=== PATIENT | male | born 1990 | race Caucasian/White ===

== ENCOUNTER 2025-07-30 15:38 | Observation (INO) ==
--- NOTE | 2025-07-30 16:32 | Emergency Department Note ---
Impression & Plan Discoloration of skin of finger, Infected finger ED Provider Note NAME: OSCAR ELIZONDO AGE: 35 SEX: M : 1990 ARRIVES VIA: Walk-In INFORMANT: Patient, ED PROVIDER(S): Chayito Marsh MD CHIEF COMPLAINT: Hand pain HPI: This is a 35-year-old male presenting for hand pain. Patient states he had fallen about 1 week ago. He notes he was seen here with negative x-rays. He states that the pain is getting worse specifically in the hands. His fingertips are becoming discolored and cold. He is worried about the symptoms. He notes he is excruciating pain from this. He tells me today that he did inject Adderall as a relapse prior to the bruising to his arm and being seen last time. He did not tell the previous provider of this. ROS: See above HPI for pertinent positives & negatives. A total of 10 systems reviewed and were otherwise negative. PAST MEDICAL HISTORY: See Below PAST SURGICAL HISTORY: See Below FAMILY HISTORY: See Below SOCIAL HISTORY: See Below HOME MEDICATIONS: See Below ALLERGIES: See Below VITALS: See Below PHYSICAL EXAMINATION: General: resting comfortably in no acute distress Head: Normocephalic and atraumatic Eyes: Normal inspection, extraocular muscles intact Ear, nose, throat: Normal external exam Neck: Normal range of motion Respiratory: lungs clear to auscultation bilaterally Cardiovascular: Regular rate/rhythm, no murmur GI: soft, nontender, no guarding or rebound Extremities: Full range motion of the shoulder, elbow and wrist, significant mottling ecchymosis of the right arm from elbow to fingertips, intact pulses radially and ulnar, cold palmar aspect of the hand and fingertips, dusky appearance of 1st, 2nd and 3rd fingers with excruciating pain Neuro: The patient awake and alert, appropriately conversive, no focal deficits, symmetric faces MEDICAL DECISION MAKING: This is a 35-year-old male presenting for hand pain. Patient has a fairly concerning physical exam. He initially did not mention the IV Adderall injection into the arm as a relapse or he been sober prior to this. His hand is fairly dusky, cold, concerning for arterial occlusion. Consider necrotizing infection, severe bruising, arterial occlusion, septic emboli - Blood work reveals WBC count 13.62. Otherwise lactic acid initially 2.3, down to 1.4. - Venous and arterial ultrasounds did not reveal thrombosis or arterial occlusion. There are 2 subcutaneous complex fluid collections, on exam I did not see clear signs of abscess. - As patient has dusky fingers, concern for distal disease, will admit to the hospital service. Patient given vancomycin and Zosyn for broad-spectrum coverage. - Care discussed with Dr. Lowe for admission Differential diagnosis: Necrotizing infection, bruising, arterial occlusion, septic emboli, venous occlusion Diagnostics interpreted by me: ECG: None Cardiac Monitoring: An order was placed for continuous cardiac monitoring. The monitor shows a rate of 67 with sinus rhythm. Past Med/Surg History Problem List (Updated 07/31/25 @ 00:11 by Chayito Marsh MD) Infected finger (Acute) Discoloration of skin of finger (Acute) Injury of right upper extremity (Acute) Medical History Opioid dependence on agonist therapy Surgical History History of orthopedic surgery Social History Smoking Status: Current every day smoker Tobacco Type: E-cigarettes / Vaping Second Hand Exposure: No; Do You Dip or Chew Tobacco: No; Tobacco Cessation Education Requested by Patient: No Hx Alcohol Use: No Hx Substance Use: Yes Last Used Substance Other:: On suboxone program. Substance Use Type Other:: Medical marijuana. 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6 C Temperature Source Temporal Artery Scan Pulse Rate 91 H Pulse Rate [Apical] 61 Respiratory Rate 16 20 Respiratory Effort / Characteristics Non-Labored Spontaneous Respiratory Depth Normal Respiratory Pattern Regular Blood Pressure 149/88 H Blood Pressure [Right Arm] 133/88 Blood Pressure Mean 108 Blood Pressure Mean [Right Arm] 103 Pulse Oximetry 96 97 Oxygen Delivery Method Room Air Room Air Sepsis Recent Fever Within 48 Hours No Sepsis New/Unexplained Change in Mental Status N/A Sepsis Action Taken by Nursing No Action Required Laboratory Data 07/30/25 16:54 07/30/25 16:54 Lab Results 07/30/25 07/30/25 Range/Units 16:54 19:11 WBC 13.62 H (4.8-10.8) K/ul RBC 4.20 L (4.70-6.10) M/uL Hgb 11.7 L (14.0-18.0) g/dl Hct 35.1 L (42.0-52.0) % MCV 83.6 (80.0-100.0) fL MCH 27.9 (25.0-34.0) pg MCHC 33.3 (32.0-36.0) g/dL RDW Std Deviation 40.4 (36.4-46.3) fL RDW Coeff of Charity 13.2 (11.5-14.5) % Plt Count 263 (130-400) K/uL MPV 8.4 L (9.4-12.4) fL Immature Gran % (Auto) 0.4 % Neut % (Auto) 91.6 % Lymph % (Auto) 6.5 % [place] % (Auto) 1.4 % Eos % (Auto) 0.0 % Baso % (Auto) 0.1 % Neut # (Auto) 12.46 H (1.40-6.50) K/uL Lymph # (Auto) 0.89 L (1.20-3.40) K/uL [place] # (Auto) 0.19 (0.11-0.59) K/uL Eos # (Auto) 0.00 (0.00-0.50) K/uL Baso # (Auto) 0.02 (0.00-0.20) K/uL Immature Gran # (Auto) 0.06 (0.01-0.20) K/uL Sodium 136 (136-145) mmol/L Potassium 4.3 (3.5-5.1) mmol/L Chloride 98 (98-107) mmol/L Carbon Dioxide 30 (21-32) mmol/L Anion Gap 8 (3-11) BUN 17 (6-23) mg/dl Creatinine 0.64 (0.6-1.4) mg/dl Est Cr Clr Drug Dosing 125.5 ml/min eGFR 125.83 BUN/Creatinine Ratio 26.6 H (10-20) Glucose 194 H (70-99(Fasting)) mg/dl Lactate 2.3 H* 1.4 (0.4-2.0) mmol/L Calcium 9.7 (8.6-10.3) mg/dl Total Bilirubin 0.5 (0.2-1.0) mg/dl AST 24 (13-39) U/L ALT 34 (7-52) U/L Alkaline Phosphatase 109 H (34-104) U/L Total Creatine Kinase 61 (30-223) U/L Total Protein 7.8 (6.0-8.3) gm/dl Albumin 4.2 (3.4-5.0) gm/dl Globulin 3.6 (2.5-4.0) gm/dl Albumin/Globulin Ratio 1.2 (0.9-2) Administered Medications Acetaminophen (Acetaminophen 325 Mg Tab) 650 mg PO QID PRN PRN Reason: pain/fever Stop: 08/29/25 19:36 Last Admin: 07/30/25 19:59 Dose: 650 mg Documented By: KATHERINE Buprenorphine/Naloxone (Buprenorphine/Naloxone 8/2 Mg Tab) 1 tab SL BID [facility] Stop: 08/29/25 20:59 Last Admin: 07/30/25 21:43 Dose: 1 tab Documented By: TEE Calcium Carbonate (Calcium Carbonate 500 Mg Chewable Tab) 500 mg PO QID PRN PRN Reason: heartburn Stop: 08/29/25 22:09 Last Admin: 07/30/25 22:15 Dose: 500 mg Documented By: TEE Doxycycline Hyclate (Doxycycline Hyclate 100 Mg Cap) 100 mg PO BID [facility] Stop: 08/06/25 20:59 Last Admin: 07/30/25 22:15 Dose: 100 mg Documented By: TEE Hydroxyzine HCl (Hydroxyzine Hcl 10 Mg Tab) 10 mg PO QID PRN PRN Reason: Anxiety Stop: 08/29/25 20:29 Last Admin: 07/30/25 23:16 Dose: 10 mg Documented By: TEE Piperacillin Sod/Tazobactam Sod (Zosyn) 4.5 gm in 100 mls @ 25 mls/hr IV Q8H PEBBLES; Protocol Stop: 08/01/25 17:14 Last Infusion: 07/30/25 22:36 Dose: Infused Documented By: Admin: 07/30/25 18:36 Dose: 25 mls/hr Documented By: KATHERINE Sodium Chloride (Nss) 1,000 mls @ 60 mls/hr IV .[id number] ONE Stop: 07/31/25 12:24 Last Admin: 07/30/25 21:15 Dose: 60 mls/hr Documented By: TEE Ketorolac Tromethamine (Ketorolac Tromethamine 15 Mg/Ml Vial) 15 mg IV Q6H PRN PRN Reason: Pain Stop: 08/04/25 19:36 Last Admin: 07/30/25 22:15 Dose: 15 mg Documented By: TEE Discontinued Medications Vancomycin HCl 1,500 mg/ (Sodium Chloride) 530 mls @ 200 mls/hr IV NOW ONE Stop: 07/30/25 19:52 Last Admin: 07/30/25 20:13 Dose: 200 mls/hr Documented By: KATHERINE Sodium Chloride (Nss) 500 mls @ 999 mls/hr IV .Q31M ONE Stop: 07/30/25 17:49 Last Infusion: 07/30/25 19:22 Dose: Infused Documented By: Admin: 07/30/25 18:22 Dose: 999 mls/hr Documented By: KATHERINE Acetaminophen (Ofirmev) 1,000 mg in 100 mls @ 400 mls/hr IV NOW STA Stop: 07/30/25 17:33 Last Infusion: 07/30/25 18:36 Dose: Infused Documented By: Admin: 07/30/25 18:21 Dose: 400 mls/hr Documented By: KATHERINE Ioversol (Optiray 320 100ml) 93 ml IV ONCE ONE Stop: 07/30/25 21:08 Last Admin: 07/30/25 21:07 Dose: 93 ml Documented By: FUNMI Ketorolac Tromethamine (Ketorolac Tromethamine 15 Mg/Ml Vial) 15 mg IV NOW ONE Stop: 07/30/25 17:20 Last Admin: 07/30/25 18:21 Dose: 15 mg Documented By: [facility] Imaging Data Radiologist's Impression: Hand X-Ray 07/30/25 16:11 INDICATION: Pain TECHNIQUE: 3 views of the right hand were obtained. COMPARISON: None FINDINGS: No displaced acute osseous process is identified. There is generalized soft tissue swelling. No soft tissue gas is detected IMPRESSION: No displaced acute osseous process is identified. Generalized soft tissue swelling without radiographically evidence soft tissue gas Electronically signed by Adam Grijalva 07-30-2025 6:30 PM Duplex Scan Upper Extremity Artery 07/30/25 16:19 EXAM: US Duplex Right Upper Extremity Arteries INDICATION: Recent fall. Dusky fingers. TECHNIQUE: Real-time duplex ultrasound scan of the right upper extremity arteries integrating B-mode two-dimensional vascular structure, Doppler spectral analysis and color flow Doppler imaging. COMPARISON: No relevant prior studies available. FINDINGS: Right common carotid artery: No acute change noted. No occlusion or significant stenosis on color flow and spectral Doppler imaging. Normal waveform. Right subclavian artery: No acute change noted. No occlusion or significant stenosis on color flow and spectral Doppler imaging. Normal waveform. Right axillary artery: No acute change noted. No occlusion or significant stenosis on color flow and spectral Doppler imaging. Normal waveform. Right brachial artery: No acute change noted. No occlusion or significant stenosis on color flow and spectral Doppler imaging. Normal waveform. Right radial artery: No acute change noted. No occlusion or significant stenosis on color flow and spectral Doppler imaging. Normal waveform. Right ulnar artery: No acute change noted. No occlusion or significant stenosis on color flow and spectral Doppler imaging. Normal waveform. Soft tissues: No abnormality noted. IMPRESSION: Normal right upper extremity duplex arterial ultrasound. ACT 112: N/A Electronically signed by Bushra Sánchez 07-30-2025 6:33 PM Venous Doppler Study 07/30/25 16:19 EXAM: US Duplex Right Upper Extremity Veins INDICATION: Recent elbow injury. Intravenous drug use. TECHNIQUE: Real-time duplex ultrasound scan of the right upper extremity veins integrating B-mode two-dimensional vascular structure, Doppler spectral analysis, color flow Doppler imaging and compression. COMPARISON: No relevant prior studies available. FINDINGS: Deep veins: No abnormality noted. No DVT in the internal jugular, subclavian, axillary, or brachial veins. The veins demonstrate normal color flow, are normally compressible, with normal phasic flow and/or augmentation response. Superficial veins: Small and suboptimally assessed. No thrombus in the visualized basilic and cephalic veins. Soft tissues: In the upper arm is a subcutaneous fluid collection measuring 1.6 cm long by 0.3 cm AP by 0.7 cm transverse. Second similar collection in the region measures 1.0 x 0.2 x 0.4 cm. IMPRESSION: 1. No deep venous thrombosis of the right upper extremity. 2. There are 2 subcutaneous complex fluid collections which could reflect hematomas. If there are infectious symptoms, small abscess is not excluded. ACT 112: N/A Electronically signed by Bushra Sánchez 07-30-2025 6:32 PM Discharge Plan Visit Data Chief Complaint: Arm Pain Stated Complaint: R ARM PAIN, BLACK FINGERS, NOT RESOLVING ED Provider: Chayito Marsh Discharge Problem: Discoloration of skin of finger, Infected finger Patient Disposition: Admitted As Inpatient Condition: Fair Discharge Instructions Interventions: ED Discharge Assessment Last Done: 07/30/25 21:04
[2025-07-30 17:10] LABS: Hematocrit (blood only) 35.1 % (42.0-52.0); Hemoglobin 11.7 g/dl (14.0-18.0); Mean Corpuscular Hemoglobin 27.9 pg (25.0-34.0); Mean Corpuscular Volume 83.6 fL (80.0-100.0); Platelet Count 263 K/uL (130-400); RDW Standard Deviation 40.4 fL (36.4-46.3); Red Blood Count 4.20 M/uL (4.70-6.10); White Blood Count 13.62 K/ul (4.8-10.8)
[2025-07-30] MEDS ORDERED: VANCOMYCIN CONSULT ACTIVE PRN (17:14)
[2025-07-30 17:27] LABS: Alanine Aminotransferase 34 U/L (7-52); Albumin Globulin Ratio 1.2 (0.9-2); Albumin Level 4.2 gm/dl (3.4-5.0); Alkaline Phosphatase 109 U/L (34-104); Anion Gap 8 (3-11); Bilirubin,Total 0.5 mg/dl (0.2-1.0); Blood Urea Nitrogen 17 mg/dl (6-23); Calcium 9.7 mg/dl (8.6-10.3); Carbon Dioxide 30 mmol/L (21-32); Chloride 98 mmol/L (98-107); Creatine Kinase 61 U/L (30-223); Creatinine Clr Calc Pharmacy 125.5 ml/min; Globulin 3.6 gm/dl (2.5-4.0); Glucose 194 mg/dl (70-99(Fasting)); Potassium 4.3 mmol/L (3.5-5.1); Sodium 136 mmol/L (136-145); Total Protein 7.8 gm/dl (6.0-8.3)
[2025-07-30 17:40] LABS: Immature Granulocytes # (auto) 0.06 K/uL (0.01-0.20); Immature Granulocytes % (auto) 0.4 %
[2025-07-30] MEDS: KETOROLAC TROMETHAMINE 15 MG/ML VIAL IV ONE (18:21)
[2025-07-30] MEDS: ACETAMINOPHEN 1,000 MG/100 ML VIAL IV STA (18:21)
[2025-07-30] MEDS: SODIUM CHLORIDE 0.9% 500 ML IV ONE (18:22)
--- NOTE | 2025-07-30 18:30 | XRay Report ---
INDICATION: Pain TECHNIQUE: 3 views of the right hand were obtained. COMPARISON: None FINDINGS: No displaced acute osseous process is identified. There is generalized soft tissue swelling. No soft tissue gas is detected IMPRESSION: No displaced acute osseous process is identified. Generalized soft tissue swelling without radiographically evidence soft tissue gas Electronically signed by Adam Grijalva 07-30-2025 6:30 PM
--- NOTE | 2025-07-30 18:32 | Ultrasound Report ---
EXAM: US Duplex Right Upper Extremity Veins INDICATION: Recent elbow injury. Intravenous drug use. TECHNIQUE: Real-time duplex ultrasound scan of the right upper extremity veins integrating B-mode two-dimensional vascular structure, Doppler spectral analysis, color flow Doppler imaging and compression. COMPARISON: No relevant prior studies available. FINDINGS: Deep veins: No abnormality noted. No DVT in the internal jugular, subclavian, axillary, or brachial veins. The veins demonstrate normal color flow, are normally compressible, with normal phasic flow and/or augmentation response. Superficial veins: Small and suboptimally assessed. No thrombus in the visualized basilic and cephalic veins. Soft tissues: In the upper arm is a subcutaneous fluid collection measuring 1.6 cm long by 0.3 cm AP by 0.7 cm transverse. Second similar collection in the region measures 1.0 x 0.2 x 0.4 cm. IMPRESSION: 1. No deep venous thrombosis of the right upper extremity. 2. There are 2 subcutaneous complex fluid collections which could reflect hematomas. If there are infectious symptoms, small abscess is not excluded. ACT 112: N/A Electronically signed by Bushra Sánchez 07-30-2025 6:32 PM
--- NOTE | 2025-07-30 18:34 | Ultrasound Report ---
EXAM: US Duplex Right Upper Extremity Arteries INDICATION: Recent fall. Dusky fingers. TECHNIQUE: Real-time duplex ultrasound scan of the right upper extremity arteries integrating B-mode two-dimensional vascular structure, Doppler spectral analysis and color flow Doppler imaging. COMPARISON: No relevant prior studies available. FINDINGS: Right common carotid artery: No acute change noted. No occlusion or significant stenosis on color flow and spectral Doppler imaging. Normal waveform. Right subclavian artery: No acute change noted. No occlusion or significant stenosis on color flow and spectral Doppler imaging. Normal waveform. Right axillary artery: No acute change noted. No occlusion or significant stenosis on color flow and spectral Doppler imaging. Normal waveform. Right brachial artery: No acute change noted. No occlusion or significant stenosis on color flow and spectral Doppler imaging. Normal waveform. Right radial artery: No acute change noted. No occlusion or significant stenosis on color flow and spectral Doppler imaging. Normal waveform. Right ulnar artery: No acute change noted. No occlusion or significant stenosis on color flow and spectral Doppler imaging. Normal waveform. Soft tissues: No abnormality noted. IMPRESSION: Normal right upper extremity duplex arterial ultrasound. ACT 112: N/A Electronically signed by Bushra Sánchez 07-30-2025 6:33 PM
[2025-07-30] MEDS: PIPERACILLIN/TAZOBACTAM 4.5 GM/100 ML BAG IV SCH (18:36)
[2025-07-30] MEDS: ACETAMINOPHEN 325 MG TAB PO PRN (19:59)
[2025-07-30] MEDS: VANCOMYCIN HCL 1,500 MG in SODIUM CHLORIDE 0.9% 500 ML IV ONE (20:13)
[2025-07-30] MEDS ORDERED: PROMETHAZINE 6.25 MG/50.25 ML BAG IV PRN (20:30)
--- NOTE | 2025-07-30 20:32 | History & Physical Report ---
Date of Service July 30, 2025 Assessment & Plan (1) Cellulitis of right upper extremity: Plan: Assessment and plan below following discussion of case with ED provider and reviewing patient history/pertinent normal/abnormal diagnostic test results. Traumatic RUE cellulitis/hematoma rule out abscess No sepsis for now Anemia secondary to injury Hyperglycemia rule out DM anxiety/mood disorder, stable off medications chronic pain on Suboxone history of substance abuse ongoing vape use Admit to MedSurg Doxycycline and Zosyn CT right hand and right forearm Orthopedics consult contingent on CT results Check hemoglobin A1c Nicotine patch. DVT prophylaxis. SCDs Re: Traumatic extremity bleed Full code Text document was generated using [employer] voice recognition software. It may contain grammatical or spelling errors. Kindly contact undersigned for clarification of any documentation item in question. History of Present Illness Chief Complaint: Worsening RUE swelling Primary Care Provider: NO PCP History obtained from patient and records. Medical history significant for anxiety/mood disorder, chronic pain on Suboxone, history of substance abuse, ongoing vape use. Patient fell on his porch last week resulting in right hand/forearm trauma. Progressive swelling noted. Patient consulted [facility] ER 5 days ago. Soft tissue swelling noted on exam. No fractures on imaging. Patient discharged home and told to follow-up with export specialist. Worsening RUE swelling/bruising over the last few days. No fever, no chills. No chest pain, no SOB. Patient return to ER for worsening symptoms. IV vancomycin and Zosyn administered at the ER. Medical History as above Surgical History : Left hand trauma surgery Family History : No DM, no heart disease, no stroke, no blood clots Personal/Social history : Ongoing vape use, no EtOH intake, [employer] employee Allergies Allergy/AdvReac Type Severity Reaction Status Date / Time No Known Allergies Allergy Verified 07/25/25 16:20 Home Medications Medication Instructions Recorded Confirmed Type buprenorphine 8 mg-naloxone 2 mg 1 film sublingual BID 07/30/25 07/30/25 History sublingual film Past Med/Surg History Problem List (Updated 07/31/25 @ 00:17 by Pino Blanca MD) Cellulitis of right upper extremity Infected finger (Acute) Discoloration of skin of finger (Acute) Injury of right upper extremity (Acute) Medical History Opioid dependence on agonist therapy Surgical History History of orthopedic surgery Social History Smoking Status: Current every day smoker Tobacco Type: E-cigarettes / Vaping Second Hand Exposure: No; Do You Dip or Chew Tobacco: No; Tobacco Cessation Education Requested by Patient: No Hx Alcohol Use: No Hx Substance Use: Yes Last Used Substance Other:: On suboxone program. Substance Use Type Other:: Medical marijuana. Preferred Language: Malay Communication Ability: Effective Protective Services Officer Required: No Beliefs That Will Affect Care: None Current Living Situation: Alone Other Information That Helps Us Care for You: No Feels Safe at Home: Yes Safety Concerns: Feels Safe At This Time Assistive Devices: Hospital Bed Review of Systems Review of Systems: As per HPI, all other systems reviewed and negative Physical Exam Physical Exam: GENERAL: Comfortable, pleasant, underweight, no respiratory distress SKIN: Pallor, warm HEENT: Pale palpebral conjunctivae, no ptosis, dry buccal mucosa NECK : Supple, no tenderness CHEST : CTA, no tenderness HEART : RRR, no obvious murmurs ABDOMEN: no distention, nontender EXTREMITIES : Tender right hand/right forearm swelling with violaceous discoloration, palpable pulses, no other conspicuous deformities noted NEUROLOGIC : Coherent, no facial asymmetry, no other gross focality Results & Data Results & Data Vital Signs (Past 12 Hours) Vital Signs Temp Pulse Pulse Resp BP BP Pulse Ox 07/30/25 18:57 61 20 133/88 97 07/30/25 15:40 36.6 C 91 H 16 149/88 H 96 O2 Del Method 07/30/25 18:57 Room Air 07/30/25 15:40 Room Air Laboratory Results Laboratory Results WBC 13.62 K/ul (4.8-10.8) H 07/30/25 16:54 RBC 4.20 M/uL (4.70-6.10) L 07/30/25 16:54 Hgb 11.7 g/dl (14.0-18.0) L 07/30/25 16:54 Hct 35.1 % (42.0-52.0) L 07/30/25 16:54 MCV 83.6 fL (80.0-100.0) 07/30/25 16:54 MCH 27.9 pg (25.0-34.0) 07/30/25 16:54 MCHC 33.3 g/dL (32.0-36.0) 07/30/25 16:54 RDW Std Deviation 40.4 fL (36.4-46.3) 07/30/25 16:54 RDW Coeff of Charity 13.2 % (11.5-14.5) 07/30/25 16:54 Plt Count 263 K/uL (130-400) 07/30/25 16:54 MPV 8.4 fL (9.4-12.4) L 07/30/25 16:54 Immature Gran % (Auto) 0.4 % 07/30/25 16:54 Neut % (Auto) 91.6 % 07/30/25 16:54 Lymph % (Auto) 6.5 % 07/30/25 16:54 [place] % (Auto) 1.4 % 07/30/25 16:54 Eos % (Auto) 0.0 % 07/30/25 16:54 Baso % (Auto) 0.1 % 07/30/25 16:54 Neut # (Auto) 12.46 K/uL (1.40-6.50) H 07/30/25 16:54 Lymph # (Auto) 0.89 K/uL (1.20-3.40) L 07/30/25 16:54 [place] # (Auto) 0.19 K/uL (0.11-0.59) 07/30/25 16:54 Eos # (Auto) 0.00 K/uL (0.00-0.50) 07/30/25 16:54 Baso # (Auto) 0.02 K/uL (0.00-0.20) 07/30/25 16:54 Immature Gran # (Auto) 0.06 K/uL (0.01-0.20) 07/30/25 16:54 Sodium 136 mmol/L (136-145) 07/30/25 16:54 Potassium 4.3 mmol/L (3.5-5.1) 07/30/25 16:54 Chloride 98 mmol/L (98-107) 07/30/25 16:54 Carbon Dioxide 30 mmol/L (21-32) 07/30/25 16:54 Anion Gap 8 (3-11) 07/30/25 16:54 BUN 17 mg/dl (6-23) 07/30/25 16:54 Creatinine 0.64 mg/dl (0.6-1.4) 07/30/25 16:54 Est Cr Clr Drug Dosing 125.5 ml/min 07/30/25 16:54 eGFR 125.83 07/30/25 16:54 BUN/Creatinine Ratio 26.6 (10-20) H 07/30/25 16:54 Glucose 194 mg/dl (70-99(Fasting)) H 07/30/25 16:54 Lactate 1.4 mmol/L (0.4-2.0) 07/30/25 19:11 Calcium 9.7 mg/dl (8.6-10.3) 07/30/25 16:54 Total Bilirubin 0.5 mg/dl (0.2-1.0) 07/30/25 16:54 AST 24 U/L (13-39) 07/30/25 16:54 ALT 34 U/L (7-52) 07/30/25 16:54 Alkaline Phosphatase 109 U/L (34-104) H 07/30/25 16:54 Total Creatine Kinase 61 U/L (30-223) 07/30/25 16:54 Total Protein 7.8 gm/dl (6.0-8.3) 07/30/25 16:54 Albumin 4.2 gm/dl (3.4-5.0) 07/30/25 16:54 Globulin 3.6 gm/dl (2.5-4.0) 07/30/25 16:54 Albumin/Globulin Ratio 1.2 (0.9-2) 07/30/25 16:54 Impressions Hand X-Ray 07/30/25 16:11 INDICATION: Pain TECHNIQUE: 3 views of the right hand were obtained. COMPARISON: None FINDINGS: No displaced acute osseous process is identified. There is generalized soft tissue swelling. No soft tissue gas is detected IMPRESSION: No displaced acute osseous process is identified. Generalized soft tissue swelling without radiographically evidence soft tissue gas Electronically signed by Adam Grijalva 07-30-2025 6:30 PM Duplex Scan Upper Extremity Artery 07/30/25 16:19 EXAM: US Duplex Right Upper Extremity Arteries INDICATION: Recent fall. Dusky fingers. TECHNIQUE: Real-time duplex ultrasound scan of the right upper extremity arteries integrating B-mode two-dimensional vascular structure, Doppler spectral analysis and color flow Doppler imaging. COMPARISON: No relevant prior studies available. FINDINGS: Right common carotid artery: No acute change noted. No occlusion or significant stenosis on color flow and spectral Doppler imaging. Normal waveform. Right subclavian artery: No acute change noted. No occlusion or significant stenosis on color flow and spectral Doppler imaging. Normal waveform. Right axillary artery: No acute change noted. No occlusion or significant stenosis on color flow and spectral Doppler imaging. Normal waveform. Right brachial artery: No acute change noted. No occlusion or significant stenosis on color flow and spectral Doppler imaging. Normal waveform. Right radial artery: No acute change noted. No occlusion or significant stenosis on color flow and spectral Doppler imaging. Normal waveform. Right ulnar artery: No acute change noted. No occlusion or significant stenosis on color flow and spectral Doppler imaging. Normal waveform. Soft tissues: No abnormality noted. IMPRESSION: Normal right upper extremity duplex arterial ultrasound. ACT 112: N/A Electronically signed by Bushra Sánchez 07-30-2025 6:33 PM Venous Doppler Study 07/30/25 16:19 EXAM: US Duplex Right Upper Extremity Veins INDICATION: Recent elbow injury. Intravenous drug use. TECHNIQUE: Real-time duplex ultrasound scan of the right upper extremity veins integrating B-mode two-dimensional vascular structure, Doppler spectral analysis, color flow Doppler imaging and compression. COMPARISON: No relevant prior studies available. FINDINGS: Deep veins: No abnormality noted. No DVT in the internal jugular, subclavian, axillary, or brachial veins. The veins demonstrate normal color flow, are normally compressible, with normal phasic flow and/or augmentation response. Superficial veins: Small and suboptimally assessed. No thrombus in the visualized basilic and cephalic veins. Soft tissues: In the upper arm is a subcutaneous fluid collection measuring 1.6 cm long by 0.3 cm AP by 0.7 cm transverse. Second similar collection in the region measures 1.0 x 0.2 x 0.4 cm. IMPRESSION: 1. No deep venous thrombosis of the right upper extremity. 2. There are 2 subcutaneous complex fluid collections which could reflect hematomas. If there are infectious symptoms, small abscess is not excluded. ACT 112: N/A Electronically signed by Bushra Sánchez 07-30-2025 6:32 PM
[2025-07-30] MEDS: OPTIRAY 320 100ml IV ONE (21:07)
[2025-07-30] MEDS: SODIUM CHLORIDE 0.9% 1,000 ML IV ONE (21:15)
[2025-07-30] MEDS: BUPRENORPHINE/NALOXONE 8/2 MG TAB SL SCH (21:43)
[2025-07-30] MEDS: DOXYCYCLINE HYCLATE 100 MG CAP PO SCH (22:15)
[2025-07-30] MEDS: KETOROLAC TROMETHAMINE 15 MG/ML VIAL IV PRN (22:15)
[2025-07-30] MEDS: CALCIUM CARBONATE 500 MG CHEWABLE TAB PO PRN (22:15)
[2025-07-31 01:04] LABS: Amphetamines+Metham, Urine Neg (Neg); MDMA (Ecstacy), Urine Neg (Neg); Marijuana, Urine Pos (Neg)
--- NOTE | 2025-07-31 01:52 | CT Scan Report ---
Exam(s): CT EXTREMITY RIGHT UPPER With Contrast IV Amt: 93 ml opti 320 EXAM: CT Right Upper Extremity With Intravenous Contrast CLINICAL HISTORY: Reason for exam: swelling. TECHNIQUE: Axial computed tomography images of the right upper extremity with intravenous contrast. CTDI is 19.67 mGy and DLP is 948.58 mGy-cm. Automated exposure control was utilized for the study. A dose lowering technique was utilized adhering to the principles of ALARA. CONTRAST: Patient received 93 ml opti 320 of IV contrast COMPARISON: No relevant prior studies available. FINDINGS: Images are obtained from the elbow to the fingers. There is no evidence of acute fracture or dislocation. There is no elbow joint effusion. There is no soft tissue gas or significant soft tissue inflammatory change. Flexor compartment of the forearm appears enlarged which may reflect diffuse muscle swelling. There is no soft tissue gas. IMPRESSION: 1. Prominence of the flexor compartment of the forearm raising the possibility of diffuse muscle swelling. Correlate clinically. Compartment syndrome is not excluded in the setting. 2. No acute osseous findings. Communications: Call Doctor Other Electronically signed by: Ed Thompson M.D. 07/31/25 01:51 AM
[2025-07-31] MEDS ORDERED: PIPERACILLIN/TAZOBACTAM 4.5 GM/100 ML BAG IV SCH (03:00)
[2025-07-31] MEDS: CEFEPIME 2000MG 2,000 MG/20 ML SYR IV SCH (04:15)
[2025-07-31 06:35] LABS: Hematocrit (blood only) 31.5 % (42.0-52.0); Hemoglobin 10.7 g/dl (14.0-18.0); Immature Granulocytes # (auto) 0.04 K/uL (0.01-0.20); Immature Granulocytes % (auto) 0.5 %; Mean Corpuscular Hemoglobin 28.5 pg (25.0-34.0); Mean Corpuscular Volume 83.8 fL (80.0-100.0); Platelet Count 226 K/uL (130-400); RDW Standard Deviation 40.8 fL (36.4-46.3); Red Blood Count 3.76 M/uL (4.70-6.10); White Blood Count 8.02 K/ul (4.8-10.8)
[2025-07-31 06:56] LABS: Anion Gap 6.0 (3-11); Blood Urea Nitrogen 15.0 mg/dl (6-23); Calcium 8.7 mg/dl (8.6-10.3); Carbon Dioxide 28.0 mmol/L (21-32); Chloride 105.0 mmol/L (98-107); Creatinine Clr Calc Pharmacy 125.4 ml/min; Glucose 100.0 mg/dl (70-99(Fasting)); Potassium 3.8 mmol/L (3.5-5.1); Sodium 139.0 mmol/L (136-145)
[2025-07-31 07:42] LABS: Hemoglobin A1C 5.2 % (4.5-5.6)
--- NOTE | 2025-07-31 09:13 | Orthopedic Consultation ---
Date of Consultation July 31, 2025 Assessment & Plan (1) Cellulitis of right upper extremity: (2) Discoloration of skin of finger: (3) Injury of right upper extremity: Plan Based on the discoloration of his fingers I am concerned that they may lose viability, I recommend that he be transferred to a tertiary care center for evaluation by hand surgeon and/or vascular surgeon. Most likely to benefit from hand surgery consultation. This was communicated with the attending physician Dr. Rodriguez today. Recommend patient be transferred today to a tertiary care center as expeditiously as possible. I do not feel the patient has an acute compartment syndrome, he does not have significant pain out of proportion with passive motion of the fingers or wrist. He does not have significant tension of his hand or forearm compartments on exam. He can actively and passively move the wrist and fingers well. He is not in obvious discomfort when I evaluated him today. I do feel the patient would benefit from being transferred to a tertiary care center where he can be evaluated by a hand surgeon, and have further care and monitoring. I do think that he has increased risk for development of necrotizing fasciitis given his recent drug use. I also cannot fully exclude s oft tissue infection within the volar forearm given the swelling noted on CT scan. Again of greatest concern to me is the discoloration and associated paresthesias in his thumb, index finger, and long finger. If he needs any sort of hand vascular procedure or extensive hand and forearm debridement, this would best be done by hand surgeon. The patient does have discoloration and skin changes noted about the right upper extremity. I do not appreciate any bullae. There is no gas on the CT scan performed overnight to suggest necrotizing fasciitis. His LRINEC score based on labs in ED on 07/30 is 2 (Hgb 11.7, Glucose 194). LRINEC score this morning also 2 (Hgb 10.7). I currently have low suspicion for necrotizing fasciitis however cannot fully exclude that this could develop given that he had recent drug injection, has discoloration of his skin. Would recommend close monitoring for any worsening signs of necrotizing fasciitis. Greatest concern based on my exam today is that the patient does have discoloration with blue to white discoloration of the fingertips of the thumb, index finger, and long finger with associated numbness and tingling. I do not feel he has an acute compartment syndrome causing this. Differential currently includes small hand vessel thrombosis, vasculitis, or other cause. There is noted swelling and pain in the thenar eminence, he does have swelling in his fingers. I do think he has an acute cellulitis. CRP less than 0.5 when checked overnight. ESR is 32. White blood cell count was 13.62 with an elevated lactate. I recommend continued elevation of the right hand and upper extremity to help with swelling and pain. Continue broad-spectrum IV antibiotic therapy Okay for gentle active range of motion of the hand and wrist as tolerated Continue with IV Toradol for pain control as needed If patient cannot be transferred I recommend vascular surgery consultation be done today, and CT angiogram of the right upper extremity. Will continue to monitor if patient remains admitted here, though I expect him to be transferred today. History of Present Illness Reason for Consultation: Right upper extremity swelling Attending Physician: Med Rodriguez MD History of Present Illness This patient is a 35-year-old [id number] male history of substance abuse, recent relapse who presented to [facility] on 07/[facility]2025 with complaint of right upper extremity pain and swelling and discoloration of his arm and hand. He reported to the emergency department provider his pain was getting worse his fingertips were becoming discolored and cold. This caused him to come to the ER for evaluation. In the ER evaluation was concerning for infection. WBC was 13.6, lactic acid was 2.3 initially, came down to 1.4. He had venous and arterial ultrasounds which did not reveal a thrombosis or arterial occlusion. In the ER he was given vancomycin and Zosyn. He was admitted to the hospitalist service. Overnight he had a CT of the forearm and hand on the right side which demonstrated no osseous finding such as fracture or dislocation. There was note of prominence of the flexor compartment of the forearm, the read also stated "correlate clinically. Compartment syndrome is not excluded in the setting." I did discuss with Dr. Blanca overnight, he stated that he did not feel the patient had acute compartment syndrome, he reported the patient did not have significant pain with passive motion of the hand or wrist. I came in to evaluate the patient this morning. He states that on Friday he fell on concrete struck his right elbow. He also had a relapse recently where he injected Adderall into his right armpit. He states that after he did that injection he started having discoloration in his right arm. He waited several days before coming to the ER for evaluation of this. He states that since he has been admitted his pain has been improving. He thinks that the discoloration of his fingers has been slightly better as well. He does complain of numbness and tingling in his thumb, index finger, and middle finger of the right hand. He thinks he may have had a fever at home in the last several days. He notes that the discoloration in the hand has been present for at least a couple of days. He states that he used clean needles when he injected the Adderall into his armpit. He started having redness and splotchy discoloration of the skin on his upper arm, forearm, and hand after the injection into his armpit. He has been receiving Toradol for pain here. Past medical history: significant for opioid dependence he is on Suboxone. Past surgical history: ORIF of his left hand Social history: Vapes daily, denies alcohol use, uses medical marijuana. Recent drug relapse injected Adderall into his right axilla. [id number]. Works at [employer]. Medications: Suboxone Allergies: NKDA Allergies Allergy/AdvReac Type Severity Reaction Status Date / Time No Known Allergies Allergy Verified 07/25/25 16:20 Home Medications Medication Instructions Recorded Confirmed Type buprenorphine 8 mg-naloxone 2 mg 1 film sublingual BID 07/30/25 07/30/25 History sublingual film Patient History Medical History Opioid dependence on agonist therapy Surgical History History of open reduction and internal fixation (ORIF) procedure History of orthopedic surgery Social History Smoking Status: Current every day smoker Tobacco Type: E-cigarettes / Vaping Second Hand Exposure: No; Do You Dip or Chew Tobacco: No; Tobacco Cessation Education Requested by Patient: No Hx Alcohol Use: No Hx Substance Use: Yes Last Used Substance Other:: On suboxone program. Substance Use Type Other:: Medical marijuana. Preferred Language: American Communication Ability: Effective Ground Defence Officer Required: No Beliefs That Will Affect Care: None Current Living Situation: Alone Other Information That Helps Us Care for You: No Feels Safe at Home: Yes Safety Concerns: Feels Safe At This Time Assistive Devices: Hospital Bed Physical Exam Physical Exam: General: Patient is awake, alert, in no obvious distress. Skin: Scattered discoloration noted from the right upper arm through the right hand. Discoloration is splotchy, slightly raised, and red to violaceous in color. There are no bullae. Discoloration is not consistent with pure ecchymosis. Musculoskeletal: Right upper extremity: Skin about the right extremity has noted scattered discoloration from the right upper arm through the right hand. This discoloration is splotchy, slightly rais ed, and red to violaceous in color. Do not appreciate any bullae, no skin sloughing is appreciated. The upper extremity is not particularly warm to touch. The tips of the thumb, index finger, and long finger are discolored, there a white to bluish discoloration, these are slightly cooler to touch relative to the remainder of the hand. -I do not appreciate any wounds in the a xilla. There is moderate tenderness to palpation noted about the right thenar eminence. Mild tenderness to palpation about the volar forearm. No significant tenderness to palpation about the elbow, or upper arm. There is no significant tenderness to palpation over the flexor tendons of the thumb, index finger, or long finger. No significant pain with passive extension of the thumb, index finger, or long finger There is noted edema throughout the right hand most pronounced along the radial aspect of the hand. The hand and forearm compartments are soft and compressible Patient exhibits active flexion and extension of the wrist, elbow, thumb and all digits, he can make about 50% of a composite fist secondary to pain and swelling Full elbow range of motion, wrist flexion and extension at least 70 degrees each direction. No significant increase in pain, or pain out of proportion with passive motion of the fingers or wrist. MMT: Wrist extension 5/5, wrist flexion 5/5, finger abduction 5/5, at least 4/5 strength with finger and thumb flexion and extension. 5/5 shoulder abduction strength, 5/5 elbow flexion and extension strength. Sensation is intact to light touch C5-T1 dermatomes, though is diminished to light touch when compared with contralateral hand in the thumb, index finger, and long finger both radial and ulnar borders. Radial pulse is 2+ Capillary refill is less than 3 seconds in the thumb, index, and long fingers though is prolonged relative to the ring and small fingers. Results & Data Vital Signs (Past 12 Hours) Vital Signs Temp Pulse Resp BP Pulse Ox Pulse Ox O2 Del Method 07/31/25 07:26 36.6 C 56 L 16 135/79 98 Room Air 07/31/25 01:50 EST 97 O2 Del Method 07/31/25 07:26 07/31/25 01:50 EST Room Air Laboratory Results 07/30/25 17:22 Aerobic Blood Culture - Pending Blood Anaerobic Blood Culture - Pending 07/30/25 16:54 Aerobic Blood Culture - Pending Blood Anaerobic Blood Culture - Pending 07/31/25 07/31/25 07/30/25 05:50 00:25 19:11 WBC 8.02 RBC 3.76 L Hgb 10.7 L Hct 31.5 L MCV 83.8 MCH 28.5 MCHC 34.0 RDW Std Deviation 40.8 RDW Coeff of Charity 13.2 Plt Count 226 MPV 8.8 L Immature Gran % (Auto) 0.5 Neut % (Auto) 63.3 Lymph % (Auto) 27.4 [place] % (Auto) 7.9 Eos % (Auto) 0.5 Baso % (Auto) 0.4 Neut # (Auto) 5.08 Lymph # (Auto) 2.20 [place] # (Auto) 0.63 H Eos # (Auto) 0.04 Baso # (Auto) 0.03 Immature Gran # (Auto) 0.04 ESR Sodium 139 Potassium 3.8 Chloride 105 Carbon Dioxide 28 Anion Gap 6 BUN 15 Creatinine 0.60 Est Cr Clr Drug Dosing 125.4 eGFR 128.30 BUN/Creatinine Ratio 25.0 H Glucose 100 H Estimat Average Glucose 103 Hemoglobin A1c 5.2 Lactate 1.4 Calcium 8.7 Total Bilirubin AST ALT Alkaline Phosphatase Total Creatine Kinase C-Reactive Protein Total Protein Albumin Globulin Albumin/Globulin Ratio Urine Opiates Screen Neg Ur Methadone, Qual Neg Urine Fentanyl Screen Neg Urine Barbiturates Neg Ur Phencyclidine (PCP) Neg U Amphetamin/Meth Scrn Neg MDMA (Ecstasy) Screen Neg U Benzodiazepines Scrn Neg Ur Cocaine Metabolite Neg U Marijuana (THC) Screen Pos H Blood Type O Positive Antibody Screen NEGATIVE 11/01/25 16:54 WBC 13.62 H RBC 4.20 L Hgb 11.7 L Hct 35.1 L MCV 83.6 MCH 27.9 MCHC 33.3 RDW Std Deviation 40.4 RDW Coeff of Charity 13.2 Plt Count 263 MPV 8.4 L Immature Gran % (Auto) 0.4 Neut % (Auto) 91.6 Lymph % (Auto) 6.5 [place] % (Auto) 1.4 Eos % (Auto) 0.0 Baso % (Auto) 0.1 Neut # (Auto) 12.46 H Lymph # (Auto) 0.89 L [place] # (Auto) 0.19 Eos # (Auto) 0.00 Baso # (Auto) 0.02 Immature Gran # (Auto) 0.06 ESR 32 H Sodium 136 Potassium 4.3 Chloride 98 Carbon Dioxide 30 Anion Gap 8 BUN 17 Creatinine 0.64 Est Cr Clr Drug Dosing 125.5 eGFR 125.83 BUN/Creatinine Ratio 26.6 H Glucose 194 H Estimat Average Glucose Hemoglobin A1c Lactate 2.3 H* Calcium 9.7 Total Bilirubin 0.5 AST 24 ALT 34 Alkaline Phosphatase 109 H Total Creatine Kinase 61 C-Reactive Protein < 0.50 Total Protein 7.8 Albumin 4.2 Globulin 3.6 Albumin/Globulin Ratio 1.2 Urine Opiates Screen Ur Methadone, Qual Urine Fentanyl Screen Urine Barbiturates Ur Phencyclidine (PCP) U Amphetamin/Meth Scrn MDMA (Ecstasy) Screen U Benzodiazepines Scrn Ur Cocaine Metabolite U Marijuana (THC) Screen Blood Type Antibody Screen Diagnostic Findings Forearm CT 07/30/25 20:29 CR Exam(s): CT EXTREMITY RIGHT UPPER With Contrast IV Amt: 93 ml opti 320 EXAM: CT Right Upper Extremity With Intravenous Contrast CLINICAL HISTORY: Reason for exam: swelling. TECHNIQUE: Axial computed tomography images of the right upper extremity with intravenous contrast. CTDI is 19.67 mGy and DLP is 948.58 mGy-cm. Automated exposure control was utilized for the study. A dose lowering technique was utilized adhering to the principles of ALARA. CONTRAST: Patient received 93 ml opti 320 of IV contrast COMPARISON: No relevant prior studies available. FINDINGS: Images are obtained from the elbow to the fingers. There is no evidence of acute fracture or dislocation. There is no elbow joint effusion. There is no soft tissue gas or significant soft tissue inflammatory change. Flexor compartment of the forearm appears enlarged which may reflect diffuse muscle swelling. There is no soft tissue gas. IMPRESSION: 1. Prominence of the flexor compartment of the forearm raising the possibility of diffuse muscle swelling. Correlate clinically. Compartment syndrome is not excluded in the setting. 2. No acute osseous findings. Communications: Call Doctor Other Electronically signed by: Ed Thompson M.D. 07/31/25 01:[address] 07/30/25 20:29 Exam(s): CT EXTREMITY RIGHT UPPER With Contrast IV Amt: 93 ml opti 320 EXAM: CT Right Upper Extremity With Intravenous Contrast CLINICAL HISTORY: Reason for exam: swelling. TECHNIQUE: Axial computed tomography images of the right upper extremity with intravenous contrast. CTDI is 19.67 mGy and DLP is 948.58 mGy-cm. Automated exposure control was utilized for the study. A dose lowering technique was utilized adhering to the principles of ALARA. CONTRAST: Patient received 93 ml opti 320 of IV contrast COMPARISON: No relevant prior studies available. FINDINGS: Images are obtained from the elbow to the fingers. There is no evidence of acute fracture or dislocation. There is no elbow joint effusion. There is no soft tissue gas or significant soft tissue inflammatory change. Flexor compartment of the forearm appears enlarged which may reflect diffuse muscle swelling. There is no soft tissue gas. IMPRESSION: 1. Prominence of the flexor compartment of the forearm raising the possibility of diffuse muscle swelling. Correlate clinically. Compartment syndrome is not excluded in the setting. 2. No acute osseous findings. Electronically signed by: Ed Thompson M.D. 07/31/25 01:51 AM (3) Injury of right upper extremity Encounter type: initial encounter Qualified Code(s): S49.91XA - Unspecified injury of right shoulder and upper arm, initial encounter
--- NOTE | 2025-07-31 11:59 | Hospitalist Progress Note ---
Date of Service July 31, 2025 Assessment & Plan (1) Cellulitis of right upper extremity: Plan: Right upper extremity cellulitis and hematoma/? Developing abscess Likely secondary to trauma, IV drug use Concern for developing necrotizing fasciitis Patient admits to use IV Adderall 1 week ago --Right upper extremity arterial Doppler:Normal right upper extremity duplex arterial ultrasound. -- Venous Doppler:No deep venous thrombosis of the right upper extremity. There are 2 subcutaneous complex fluid collections which could reflect hematomas. If there are infectious symptoms, small abscess is not excluded. -- Forearm CT:Prominence of the flexor compartment of the forearm raising the possibility of diffuse muscle swelling. Correlate clinically. Compartment syndrome is not excluded in the setting. No acute osseous findings. --Hand CT:. Prominence of the flexor compartment of the forearm raising the possibility of diffuse muscle swelling. Correlate clinically. Compartment syndrome is not excluded in the setting. No acute osseous findings. --Nasal MRSA:Negative -- Blood cultures pending --Continue doxycycline, IV cefepime IV fluids as needed Discussed with vascular surgeon in [place]: Reviewed images, offers no intervention at this time Discussed with hand surgeon at [place]: Patient could have distal emboli but no intervention recommended currently. Recommends Nitropaste, and vomiting. Appreciate orthopedics input IV drug use Care Nurse Rn to quit drug use Anemia Unsure baseline hemoglobin Hemoglobin dropped partly dilutional secondary to IV fluids No acute bleeding issues Monitor Hyperglycemia HbA1c 5.2 Other chronic conditions Anxiety/mood disorder Chronic pain on Suboxone Ongoing vape use DVT Px: SCDs for now Will consider to add anticoagulation as soon as possible CODE STATUS Full code Admission and Anticipated Discharge Date Admission Date: July 30, 2025 Subjective Patient is seen and examined at bedside States having right arm, forearm erythema, edema and pain Discussed with orthopedics today Denies any chest pain, dyspnea, nausea, vomiting, abdominal pain Review of Systems Review of Systems: All systems reviewed & are unremarkable except as noted in Subjective Physical Exam Physical Exam: Physical Exam: Vitals signs as noted above General Appearance:Thin, frail, no apparent distress Moderately built and nourished, no apparent distress Head: normocephalic, Atraumatic Eyes: normal inspection, EOMI Neck: supple, Trachea midline Respiratory/Chest: Normal breath sounds, CTA, No accessory muscle use Cardiovascular: S1, S2, No murmur Abdomen/GI:Soft, Non tender, Bowel sounds present Extremities/Musculoskeletal:normal inspection, right hand/forearm tender, swelling, discoloration. Neurologic/Psych:AAOX3, grossly no focal neurological deficits Skin: normal color, warm Results & Data Results & Data Vital Signs (Past 12 Hours) Vital Signs Temp Pulse Resp BP Pulse Ox Pulse Ox O2 Del Method 07/31/25 07:26 36.6 C 56 L 16 135/79 98 Room Air 07/31/25 01:50 EST 97 O2 Del Method 07/31/25 07:26 07/31/25 01:50 EST Room Air Laboratory Results Short CBC 07/30/25 07/31/25 Range/Units 16:54 05:50 WBC 13.62 H 8.02 (4.8-10.8) K/ul Hgb 11.7 L 10.7 L (14.0-18.0) g/dl Hct 35.1 L 31.5 L (42.0-52.0) % Plt Count 263 226 (130-400) K/uL BMP 07/30/25 07/31/25 16:54 05:50 Sodium 136 139 Potassium 4.3 3.8 Chloride 98 105 Carbon Dioxide 30 28 BUN 17 15 Creatinine 0.64 0.60 Glucose 194 H 100 H Calcium 9.7 8.7 Cardiac Enzymes 07/30/25 Range/Units 16:54 Total Creatine Kinase 61 (30-223) U/L Liver Function 07/30/25 Range/Units 16:54 Total Bilirubin 0.5 (0.2-1.0) mg/dl AST 24 (13-39) U/L ALT 34 (7-52) U/L Alkaline Phosphatase 109 H (34-104) U/L Albumin 4.2 (3.4-5.0) gm/dl
[2025-07-31] MEDS: NITROGLYCERIN 2% OINTMENT 30GM TUBE EXT SCH ×2 (14:37→20:23)
[2025-07-31] MEDS: LACTATED RINGER'S 1,000 ML IV ONE (14:42)
--- NOTE | 2025-07-31 19:23 | Orthopedic Progress Note ---
Date of Service July 31, 2025 Assessment & Plan Admission and Anticipated Discharge Date Admission Date: July 30, 2025 Orthopedic Progress Note Subjective: I saw and evaluated the patient at bedside at approximately 1745. Continues to have discoloration of the thumb, index finger, and long finger on the right hand. He states that his pain is improving. He thinks that the discoloration is getting a little bit better. Objective: Right thumb, index finger, long finger still have a bluish-white discoloration. Continues to have violaceous skin discoloration. This is does not appear to of significantly worsened since my exam this morning. Patient is able to flex and extend all of the fingers and the thumb as well as the wrist without significant pain. Assessment and plan: 1. Right upper extremity cellulitis 2. Discoloration of skin of fingers - I had a discussion with Dr. Gonzales, hand surgeon at [facility] regarding this patient. He feels that the patient likely has micro emboli to the fingers, he stated that there was not any significant surgery that could be offered to this patient to help with this problem. He recommended application of topical Nitropaste, warming of the hand, and to allow the fingers to declare themselves if there is going to be any significant tissue necrosis. He did not feel it was necessary to transfer the patient at this time. We will continue to monitor. He may need to follow-up with hand surgery as an outpatient. - Continue with IV antibiotic therapy - Continue to monitor. Should the patient develop any blistering, bullae, or other significant changes to his arm he may be developing necrotizing fasciitis and I would recommend emergent transfer likely via [facility] helicopter to tertiary [facility].
[2025-08-01] MEDS ORDERED: Nursing to Pharmacy Communication SCH (03:45)
[2025-08-01 07:08] LABS: Hematocrit (blood only) 32.7 % (42.0-52.0); Hemoglobin 11.2 g/dl (14.0-18.0); Mean Corpuscular Hemoglobin 28.8 pg (25.0-34.0); Mean Corpuscular Volume 84.1 fL (80.0-100.0); Platelet Count 236 K/uL (130-400); RDW Standard Deviation 39.8 fL (36.4-46.3); Red Blood Count 3.89 M/uL (4.70-6.10); White Blood Count 4.63 K/ul (4.8-10.8)
[2025-08-01 07:36] LABS: Anion Gap 4 (3-11); Blood Urea Nitrogen 20 mg/dl (6-23); Calcium 8.6 mg/dl (8.6-10.3); Carbon Dioxide 34 mmol/L (21-32); Chloride 103 mmol/L (98-107); Creatinine Clr Calc Pharmacy 109.1 ml/min; Glucose 89 mg/dl (70-99(Fasting)); Magnesium 1.8 mg/dl (1.7-2.4); Potassium 3.7 mmol/L (3.5-5.1); Sodium 141 mmol/L (136-145)
--- NOTE | 2025-08-01 09:09 | Orthopedic Progress Note ---
Date of Service August 01, 2025 Assessment & Plan (1) Cellulitis of right upper extremity: (2) Discoloration of skin of finger: (3) Injury of right upper extremity: Plan Patient is a 35-year-old male with right upper extremity cellulitis, micro emboli versus vasculitis versus necrotizing fasciitis although unlikely; secondary to IV Adderall that was injected into the axilla a little over a week ago Patient overall is improving with reduced pain and better mobility. No concern for compartment syndrome at this time No soft tissue fluctuance or masses in the axilla or upper arm to indicate any abscess Blood cultures negative, white count 4.63, CRP less than 0.5 Continue IV antibiotics per medicine service currently on doxycycline and IV cefepime Continue with elevating and pain control per primary team, Can do IV Toradol Continue with application of topical Nitropaste and warming of the hand We will continue to monitor while he is here. Okay for gentle active range of motion of the hand, wrist and elbow as tolerated This case was discussed yesterday with Dr. Gonzales our hand surgeon in [facility] who did not feel there is any surgery that could be offered at this time and would continue with the topical Nitropaste, warming of the hand and time to allow the fingers to declare themselves and see if there is any significant tissue necrosis. Case was discussed with [facility] vascular who also did not feel there is any need for any vascular intervention at this time. Will discuss case with attending Dr Velze Admission and Anticipated Discharge Date Admission Date: July 30, 2025 Supervising Physician Co-Signing Physician Notes I personally saw and evaluated the patient. States that overall he thinks his hand is getting slightly better. Discoloration seems to be better. Pain is controlled. He is moving the hand slightly better than he was previously. Champagne portions of physical exam confirmed by myself today. Continues to have scattered discoloration from the right upper arm through the right hand which is red to violaceous in color slightly raised. I do not appreciate any palpable areas of fluctuance. There are no bullae. There is a bluish discoloration to white appearing nailbeds and distal fingertips of the thumb, index finger, and long finger. This is slightly cooler to touch compared to the remainder of the hand. I do not appreciate any palpable fluid collections in the hand. He is tender to palpation at the thenar eminence. Patient is able to actively move all fingers and thumb he can make about 80% of a full fist limited due to swelling. He can actively flex and extend the wrist and elbow without any significant pain. He can freely move his shoulder. Hand and forearm compartments are soft and compressible Radial pulse 2+ Sensation intact to light touch over all of the fingers, slightly diminished over thumb index finger and long finger Capillary refill with prolonged, thumb is about 3 to 4 seconds, index finger is about 4 seconds, long finger about 3 to 4 seconds, ring and pinky finger 2 to 3 seconds. Impression: Right upper extremity cellulitis, right right hand micro emboli versus vasculitis, possible necrotizing fasciitis although unlikely. This is secondary to intravenous Adderall that was injected at the axilla about 1 week ago. - Overall patient is improving with less pain better mobility. I do not have any concern for compartment syndrome at this time. - I do not appreciate any fluctuance or soft tissue masses to indicate an abscess - I do think that the patient likely has micro emboli to his thumb, index finger, and long finger. I do have concern that these have poor perfusion, it is very likely the patient will have tissue necrosis and require partial amputation of the fingers in the future. - Blood cultures negative, CRP less than 0.5. - This is a complex case. He may benefit from dermatology consultation for evaluation of the skin changes as these are not completely consistent with cellulitis. Continue with application of topical Nitropaste and hand warming Will continue to monitor Do not feel patient stable for discharge at this time. OT consult will be ordered for hand range of motion exercises Subjective Patient was seen and examined at bedside this morning. He says that he is overall doing well. He states small improvement. Nothing has gotten worse. He says that he is able to move his hand much better. He does feel like the discoloration has gotten better mostly in his pinky and his ring finger. Denies any new or worsening numbness and tingling. Physical Exam Physical Exam: General: Patient is awake, alert, in no obvious distress. Skin: Scattered discoloration noted from the right upper arm through the right hand. Discoloration is splotchy, slightly raised, and red to violaceous in color. There are no bullae. There are no breaks in the skin. Discoloration is not consistent with pure ecchymosis. He has a faint bluish discoloration with more white appearing nailbeds over his distal fingertip/nail of 1-3rd digits. This is worse in the index finger. Distal tips of fingers are slightly cooler to touch compared to his other hand. There is no appreciable warmth in the upper arm or forearm. Right upper extremity: The tips of the thumb, index finger, and long finger are discolored, there a white to bluish discoloration, these are slightly cooler to touch relative to the remainder of the hand. -Patient has moderate tenderness over th e distal parts of his finger and thenar eminence. He otherwise has just mild tenderness to palpate the remaining part of the dorsum of his hand and forearm muscles that he describes as muscle soreness. No significant pain in the wrist joint or elbow joint. He has an area just proximal to the lateral aspect of his elbow that is slightly more tender to the touch. However there is no swelling, edema, fluctuance or masses. There are no fluctuance/masses/fluid collections in the axilla or remaining upper arm. No significant pain over his upper arm Patient is able to freely wiggle all of his fingers, he can actively flex and extend his hand and nearly make a full fist about 80%, mostly limited due to swelling. He is able to actively and fully flex and extend his wrist as well as his elbow without any significant pain. He can freely move his shoulder. The hand and forearm compartments are soft and compressible No significant increase in pain, or pain out of proportion with passive motion of the fingers or wrist. -Patient is able to hold his thumb again st resistance and has intact gross motor strength of his right upper extremity -2+ distal radial pulse present and sens ation intact distally to light touch over all of his fingers -Capillary refill is prolonged in all of his digits, worse in the pointer finger. In his pointer finger did not appreciate much perfusion. Thumb was about 3-4 seconds, middle finger 3-4 seconds ring and pinky finger 2-3 seconds. Results & Data Vital Signs (Past 12 Hours) Vital Signs Temp Pulse Resp BP Pulse Ox O2 Del Method 08/01/25 07:25 36.7 C 62 14 128/61 96 Room Air 08/01/25 03:22 136/83 07/31/25 22:29 36.5 C 63 16 104/63 96 Room Air Laboratory Results 08/01/25 07/31/25 Range/Units 06:26 10:52 WBC 4.63 L (4.8-10.8) K/ul RBC 3.89 L (4.70-6.10) M/uL Hgb 11.2 L (14.0-18.0) g/dl Hct 32.7 L (42.0-52.0) % MCV 84.1 (80.0-100.0) fL MCH 28.8 (25.0-34.0) pg MCHC 34.3 (32.0-36.0) g/dL RDW Std Deviation 39.8 (36.4-46.3) fL RDW Coeff of Charity 13.1 (11.5-14.5) % Plt Count 236 (130-400) K/uL MPV 8.7 L (9.4-12.4) fL Sodium 141 (136-145) mmol/L Potassium 3.7 (3.5-5.1) mmol/L Chloride 103 (98-107) mmol/L Carbon Dioxide 34 H (21-32) mmol/L Anion Gap 4 (3-11) BUN 20 (6-23) mg/dl Creatinine 0.69 (0.6-1.4) mg/dl Est Cr Clr Drug Dosing 109.1 ml/min eGFR 123.00 BUN/Creatinine Ratio 29.0 H (10-20) Glucose 89 (70-99(Fasting)) mg/dl Calcium 8.6 (8.6-10.3) mg/dl Magnesium 1.8 (1.7-2.4) mg/dl C-Reactive Protein < 0.50 (0-0.5) mg/dl Nasal Screen MRSA (PCR) Negative (Negative) Microbiology 07/30/25 17:22 Aerobic Blood Culture - Preliminary Blood No growth in Aerobic bottle after 24 hours. Anaerobic Blood Culture - Preliminary No growth in Anaerobic bottle after 24 hours. 07/30/25 16:54 Aerobic Blood Culture - Preliminary Blood No growth in Aerobic bottle after 24 hours. Anaerobic Blood Culture - Preliminary No growth in Anaerobic bottle after 24 hours. Diagnostic Findings --Right upper extremity arterial Doppler:Normal right upper extremity duplex arterial ultrasound. -- Venous Doppler:No deep venous thrombosis of the right upper extremity. There are 2 subcutaneous complex fluid collections which could reflect hematomas. If there are infectious symptoms, small abscess is not excluded. -- Forearm CT:Prominence of the flexor compartment of the forearm raising the possibility of diffuse muscle swelling. Correlate clinically. Compartment syndrome is not excluded in the setting. No acute osseous findings. --Hand CT:. Prominence of the flexor compartment of the forearm raising the possibility of diffuse muscle swelling. Correlate clinically. Compartment syndrome is not excluded in the setting. No acute osseous findings. (3) Injury of right upper extremity Encounter type: initial encounter Qualified Code(s): S49.91XA - Unspecified injury of right shoulder and upper arm, initial encounter
[2025-08-01] MEDS: NITROGLYCERIN 2% OINTMENT 30GM TUBE EXT SCH (09:54)
--- NOTE | 2025-08-01 16:27 | Hospitalist Progress Note ---
Date of Service August 01, 2025 Assessment & Plan (1) Cellulitis of right upper extremity: Plan: Right upper extremity cellulitis and hematoma/? Developing abscess Likely secondary to trauma, IV drug use Concern for developing necrotizing fasciitis Patient admits to use IV Adderall 1 week ago --Right upper extremity arterial Doppler:Normal right upper extremity duplex arterial ultrasound. -- Venous Doppler:No deep venous thrombosis of the right upper extremity. There are 2 subcutaneous complex fluid collections which could reflect hematomas. If there are infectious symptoms, small abscess is not excluded. -- Forearm CT:Prominence of the flexor compartment of the forearm raising the possibility of diffuse muscle swelling. Correlate clinically. Compartment syndrome is not excluded in the setting. No acute osseous findings. --Hand CT:. Prominence of the flexor compartment of the forearm raising the possibility of diffuse muscle swelling. Correlate clinically. Compartment syndrome is not excluded in the setting. No acute osseous findings. --Nasal MRSA:Negative -- Blood cultures negative to date --Continue doxycycline, IV cefepime IV fluids as needed Discussed with vascular surgeon in [place]: Reviewed images, offers no i ntervention at this time Discussed with hand surgeon at [place]: Patient could have distal emboli but no intervention recommended currently. Recommends Nitropaste, and hand warming Appreciate orthopedics input Slowly improving OT consulted Orthopedics following IV drug use Counselled to quit drug use Anemia Unsure baseline hemoglobin Hemoglobin dropped partly dilutional secondary to IV fluids No acute bleeding issues Monitor Hyperglycemia HbA1c 5.2 Other chronic conditions Anxiety/mood disorder Chronic pain on Suboxone Ongoing vape use DVT Px: Lovenox SQ CODE STATUS Full code Admission and Anticipated Discharge Date Admission Date: July 30, 2025 Subjective Patient is seen and examined at bedside States feeling better Right arm, forearm erythema, edema and slowly improving pain No new complaints Denies any chest pain, dyspnea, nausea, vomiting, abdominal pain Review of Systems Review of Systems: All systems reviewed & are unremarkable except as noted in Subjective Physical Exam Physical Exam: Physical Exam: Vitals signs as noted above General Appearance:Thin, frail, no apparent distress Moderately built and nourished, no apparent distress Head: normocephalic, Atraumatic Eyes: normal inspection, EOMI Neck: supple, Trachea midline Respiratory/Chest: Normal breath sounds, CTA, No accessory muscle use Cardiovascular: S1, S2, No murmur Abdomen/GI:Soft, Non tender, Bowel sounds present Extremities/Musculoskeletal:normal inspection, right hand/forearm tender, swelli ng, discoloration. Neurologic/Psych:AAOX3, grossly no focal neurological deficits Skin: normal color, warm Results & Data Results & Data Vital Signs (Past 12 Hours) Vital Signs Temp Pulse Resp BP Pulse Ox O2 Del Method 08/01/25 15:16 36.8 C 68 15 117/69 95 Room Air 08/01/25 07:25 36.7 C 62 14 128/61 96 Room Air Laboratory Results Short CBC 08/01/25 Range/Units 06:26 WBC 4.63 L (4.8-10.8) K/ul Hgb 11.2 L (14.0-18.0) g/dl Hct 32.7 L (42.0-52.0) % Plt Count 236 (130-400) K/uL BMP 08/01/25 06:26 Sodium 141 Potassium 3.7 Chloride 103 Carbon Dioxide 34 H BUN 20 Creatinine 0.69 Glucose 89 Calcium 8.6
[2025-08-01] MEDS: ENOXAPARIN INJ 40 MG/0.4 ML SYR SQ SCH (16:56)
--- NOTE | 2025-08-02 10:05 | Orthopedic Progress Note ---
Date of Service August 02, 2025 Assessment & Plan (1) Cellulitis of right upper extremity: (2) Discoloration of skin of finger: (3) Injury of right upper extremity: Plan Right upper extremity cellulitis, right right hand micro emboli versus vasculitis, possible necrotizing fasciitis although unlikely. This is secondary to intravenous Adderall that was injected at the axilla about 1 week ago. - Overall patient is improving with less pain better mobility. At this point no concern for compartment syndrome. - No fluctuance or soft tissue masses to indicate an abscess - Patient likely has micro emboli to his thumb, index finger, and long finger. There is concern that these have poor perfusion, it is very possible the patient will have tissue necrosis and require partial amputation of the fingers in the future. - Blood cultures negative, white count 4.63CRP less than 0.5. - This is a complex case. He may benefit from dermatology consultation for evaluation of the skin changes as these are not completely consistent with cellulitis. Continue with application of topical Nitropaste and hand warming Will continue to monitor OT consult will be ordered for hand range of motion exercises Admission and Anticipated Discharge Date Admission Date: July 30, 2025 Supervising Physician Co-Signing Physician Notes I personally saw and evaluated this patient today. He is resting comfortably in bed. He denies any significant worsening of his pain. Feels like overall his hand is improving. He continues to have some pain at times is about an 8 out of 10. Is well-controlled with oral medications. Physical exam: There is scattered discoloration which is splotchy, slightly raised, and red to violaceous in color this is scattered about the upper arm, forearm, and hand. This consistent with possibly a vasculitis or other disorder. I do not think that is fully related to cellulitis. Moderate tenderness to palpation over the thenar eminence, is improved from previous exams. No palpable fluid collections or masses in the axilla or upper arm. No significant pain about the forearm with palpation. Patient can actively flex and extend the hand he can make about 80 to 90% of composite fist. He can freely move the shoulder he can fully flex and extend the wrist. Hand and forearm compartments are soft and compressible. No pain out of proportion with passive motion of the wrist or fingers. Patient is able to hold the thumb against resistance and has 5 out of 5 strength with resisted wrist flexion and extension. Sensation is intact to light touch in the median/radial/ulnar nerve distributions. Slightly diminished most pronounced over the index finger relative to the contralateral limb. Capillary refill is prolonged in all of his digits, is worse in the index finger and thumb index finger is about 3 to 4 seconds, thumb is about 3 seconds, remainder of the fingers are about 2 to 3 seconds. 2+ radial pulse Impression: Right upper extremity cellulitis versus vasculitis. Likely has right hand micro emboli causing some diminished blood vessel flow to the hand. -I recommend consultation with dermatology regarding the skin changes as I do not think this is fully consistent with cellulitis only. - Recommend continued IV antibiotics, will defer transition to orals to hospitalist team -I have discussed with the patient that he likely has some emboli in his hand and fingers which may cause him to have tissue necrosis and may require partial amputation of his fingers in the future. -Continue with topical Nitropaste and hand warming -Continue occupational therapy for range of motion exercises -We will continue to monitor Subjective This 35-year-old male seen this morning for follow-up of right upper extremity infection after injecting Adderall into his right axilla. Patient states that he is doing much better today than he was yesterday. He states that he is able to move his fingers better but still has difficulty making a complete fist. States the rash also seems to be improving. Patient experiencing most discomfort in his right thumb. He states that the discoloration of his nailbeds seems to be improving as well. Currently he denies chest pain, shortness of breath, fever, chills, sweats, nausea, vomiting, diarrhea or difficulty voiding. He has no complaint of numbness or tingling in the right upper extremity. Review of Systems Review of Systems: All systems reviewed & are unremarkable except as noted in Subjective Physical Exam Physical Exam: Skin: Scattered discoloration noted from the right upper arm through the right hand. Discoloration is splotchy, slightly raised, and red to violaceous in color. There are no bullae. There are no breaks in the skin. Discoloration is not consistent with pure ecchymosis. He has a faint bluish discoloration with more white appearing nailbeds over his distal fingertip/nail of 1-3rd digits. This is worse in the index finger. Distal tips of fingers are slightly cooler to touch compared to his other hand. There is no appreciable warmth in the upper arm or forearm.There appears to be no necrotic tissue or skin breakdown in any of his digits, hand or wrist. Right upper extremity: -Patient has moderate tenderness over th e distal parts of his finger and thenar eminence. He otherwise has just mild tenderness to palpate the remaining part of the dorsum of his hand and forearm muscles that he describes as muscle soreness. There are no fluctuance/masses/fluid collections in the axilla or remaining upper arm. No significant pain over his upper armPatient is able to freely wiggle all of his fingers, he can actively flex and extend his hand. He is able to actively and fully flex and extend his wrist as well as his elbow without any significant pain. He can freely move his shoulder. The hand and forearm compartments are soft and compressible No significant increase in pain, or pain out of proportion with passive motion of the fingers or wrist. -Patient is able to hold his thumb again st resistance and has intact gross motor strength of his right upper extremity -2+ distal radial pulse present and sens ation intact distally to light touch over all of his fingers -Capillary refill is prolonged in all of his digits, worse in the index finger and thumb. Results & Data Vital Signs (Past 12 Hours) Vital Signs Temp Pulse Resp BP Pulse Ox O2 Del Method 08/02/25 07:45 36.5 C 84 16 130/68 97 Room Air 08/01/25 22:41 36.7 C 69 16 114/66 94 Room Air Diagnostic Findings Laboratory Results WBC 4.63 K/ul (4.8-10.8) L 08/01/25 06:26 RBC 3.89 M/uL (4.70-6.10) L 08/01/25 06:26 Hgb 11.2 g/dl (14.0-18.0) L 08/01/25 06:26 Hct 32.7 % (42.0-52.0) L 08/01/25 06:26 MCV 84.1 fL (80.0-100.0) 08/01/25 06:26 MCH 28.8 pg (25.0-34.0) 08/01/25 06:26 MCHC 34.3 g/dL (32.0-36.0) 08/01/25 06:26 RDW Std Deviation 39.8 fL (36.4-46.3) 08/01/25 06:26 RDW Coeff of Charity 13.1 % (11.5-14.5) 08/01/25 06:26 Plt Count 236 K/uL (130-400) 08/01/25 06:26 MPV 8.7 fL (9.4-12.4) L 08/01/25 06:26 Immature Gran % (Auto) 0.5 % 07/31/25 05:50 Neut % (Auto) 63.3 % 07/31/25 05:50 Lymph % (Auto) 27.4 % 07/31/25 05:50 Grainger % (Auto) 7.9 % 07/31/25 05:50 Eos % (Auto) 0.5 % 07/31/25 05:50 Baso % (Auto) 0.4 % 07/31/25 05:50 Neut # (Auto) 5.08 K/uL (1.40-6.50) 07/31/25 05:50 Lymph # (Auto) 2.20 K/uL (1.20-3.40) 07/31/25 05:50 Grainger # (Auto) 0.63 K/uL (0.11-0.59) H 07/31/25 05:50 Eos # (Auto) 0.04 K/uL (0.00-0.50) 07/31/25 05:50 Baso # (Auto) 0.03 K/uL (0.00-0.20) 07/31/25 05:50 Immature Gran # (Auto) 0.04 K/uL (0.01-0.20) 07/31/25 05:50 ESR 32 mm/hr (0-15) H 07/30/25 16:54 Sodium 141 mmol/L (136-145) 08/01/25 06:26 Potassium 3.7 mmol/L (3.5-5.1) 08/01/25 06:26 Chloride 103 mmol/L (98-107) 08/01/25 06:26 Carbon Dioxide 34 mmol/L (21-32) H 08/01/25 06:26 Anion Gap 4 (3-11) 08/01/25 06:26 BUN 20 mg/dl (6-23) 08/01/25 06:26 Creatinine 0.69 mg/dl (0.6-1.4) 08/01/25 06:26 Est Cr Clr Drug Dosing 109.1 ml/min 08/01/25 06:26 eGFR 123.00 08/01/25 06:26 BUN/Creatinine Ratio 29.0 (10-20) H 08/01/25 06:26 Glucose 89 mg/dl (70-99(Fasting)) 08/01/25 06:26 Estimat Average Glucose 103 mg/dl 07/31/25 05:50 Hemoglobin A1c 5.2 % (4.5-5.6) 07/31/25 05:50 Lactate 1.4 mmol/L (0.4-2.0) 07/30/25 19:11 Calcium 8.6 mg/dl (8.6-10.3) 08/01/25 06:26 Magnesium 1.8 mg/dl (1.7-2.4) 08/01/25 06:26 Total Bilirubin 0.5 mg/dl (0.2-1.0) 07/30/25 16:54 AST 24 U/L (13-39) 07/30/25 16:54 ALT 34 U/L (7-52) 07/30/25 16:54 Alkaline Phosphatase 109 U/L (34-104) H 07/30/25 16:54 Total Creatine Kinase 61 U/L (30-223) 07/30/25 16:54 C-Reactive Protein < 0.50 mg/dl (0-0.5) 08/01/25 06:26 Total Protein 7.8 gm/dl (6.0-8.3) 07/30/25 16:54 Albumin 4.2 gm/dl (3.4-5.0) 07/30/25 16:54 Globulin 3.6 gm/dl (2.5-4.0) 07/30/25 16:54 Albumin/Globulin Ratio 1.2 (0.9-2) 07/30/25 16:54 Nasal Screen MRSA (PCR) Negative (Negative) 07/31/25 10:52 Urine Opiates Screen Neg (Neg) 07/31/25 00:25 Ur Methadone, Qual Neg (Neg) 07/31/25 00:25 Urine Fentanyl Screen Neg (Neg) 07/31/25 00:25 Urine Barbiturates Neg (Neg) 07/31/25 00:25 Ur Phencyclidine (PCP) Neg (Neg) 07/31/25 00:25 U Amphetamin/Meth Scrn Neg (Neg) 07/31/25 00:25 MDMA (Ecstasy) Screen Neg (Neg) 07/31/25 00:25 U Benzodiazepines Scrn Neg (Neg) 07/31/25 00:25 Ur Cocaine Metabolite Neg (Neg) 07/31/25 00:25 U Marijuana (THC) Screen Pos (Neg) H 07/31/25 00:25 Blood Type O Positive 07/31/25 05:50 Antibody Screen NEGATIVE 07/31/25 05:50 Impressions Hand X-Ray 07/30/25 16:11 INDICATION: Pain TECHNIQUE: 3 views of the right hand were obtained. COMPARISON: None FINDINGS: No displaced acute osseous process is identified. There is generalized soft tissue swelling. No soft tissue gas is detected IMPRESSION: No displaced acute osseous process is identified. Generalized soft tissue swelling without radiographically evidence soft tissue gas Electronically signed by Adam Grijalva 07-30-2025 6:30 PM Duplex Scan Upper Extremity Artery 07/30/25 16:19 EXAM: US Duplex Right Upper Extremity Arteries INDICATION: Recent fall. Dusky fingers. TECHNIQUE: Real-time duplex ultrasound scan of the right upper extremity arteries integrating B-mode two-dimensional vascular structure, Doppler spectral analysis and color flow Doppler imaging. COMPARISON: No relevant prior studies available. FINDINGS: Right common carotid artery: No acute change noted. No occlusion or significant stenosis on color flow and spectral Doppler imaging. Normal waveform. Right subclavian artery: No acute change noted. No occlusion or significant stenosis on color flow and spectral Doppler imaging. Normal waveform. Right axillary artery: No acute change noted. No occlusion or significant stenosis on color flow and spectral Doppler imaging. Normal waveform. Right brachial artery: No acute change noted. No occlusion or significant stenosis on color flow and spectral Doppler imaging. Normal waveform. Right radial artery: No acute change noted. No occlusion or significant stenosis on color flow and spectral Doppler imaging. Normal waveform. Right ulnar artery: No acute change noted. No occlusion or significant stenosis on color flow and spectral Doppler imaging. Normal waveform. Soft tissues: No abnormality noted. IMPRESSION: Normal right upper extremity duplex arterial ultrasound. ACT 112: N/A Electronically signed by Bushra Sánchez 07-30-2025 6:33 PM Venous Doppler Study 07/30/25 16:19 EXAM: US Duplex Right Upper Extremity Veins INDICATION: Recent elbow injury. Intravenous drug use. TECHNIQUE: Real-time duplex ultrasound scan of the right upper extremity veins integrating B-mode two-dimensional vascular structure, Doppler spectral analysis, color flow Doppler imaging and compression. COMPARISON: No relevant prior studies available. FINDINGS: Deep veins: No abnormality noted. No DVT in the internal jugular, subclavian, axillary, or brachial veins. The veins demonstrate normal color flow, are normally compressible, with normal phasic flow and/or augmentation response. Superficial veins: Small and suboptimally assessed. No thrombus in the visualized basilic and cephalic veins. Soft tissues: In the upper arm is a subcutaneous fluid collection measuring 1.6 cm long by 0.3 cm AP by 0.7 cm transverse. Second similar collection in the region measures 1.0 x 0.2 x 0.4 cm. IMPRESSION: 1. No deep venous thrombosis of the right upper extremity. 2. There are 2 subcutaneous complex fluid collections which could reflect hematomas. If there are infectious symptoms, small abscess is not excluded. ACT 112: N/A Electronically signed by Bushra Sánchez 07-30-2025 6:[address] 07/30/25 20:29 CR Exam(s): CT EXTREMITY RIGHT UPPER With Contrast IV Amt: 93 ml opti 320 EXAM: CT Right Upper Extremity With Intravenous Contrast CLINICAL HISTORY: Reason for exam: swelling. TECHNIQUE: Axial computed tomography images of the right upper extremity with intravenous contrast. CTDI is 19.67 mGy and DLP is 948.58 mGy-cm. Automated exposure control was utilized for the study. A dose lowering technique was utilized adhering to the principles of ALARA. CONTRAST: Patient received 93 ml opti 320 of IV contrast COMPARISON: No relevant prior studies available. FINDINGS: Images are obtained from the elbow to the fingers. There is no evidence of acute fracture or dislocation. There is no elbow joint effusion. There is no soft tissue gas or significant soft tissue inflammatory change. Flexor compartment of the forearm appears enlarged which may reflect diffuse muscle swelling. There is no soft tissue gas. IMPRESSION: 1. Prominence of the flexor compartment of the forearm raising the possibility of diffuse muscle swelling. Correlate clinically. Compartment syndrome is not excluded in the setting. 2. No acute osseous findings. Communications: Call Doctor Other Electronically signed by: Ed Thompson M.D. 07/31/25 01:[address] 07/30/25 20:29 Exam(s): CT EXTREMITY RIGHT UPPER With Contrast IV Amt: 93 ml opti 320 EXAM: CT Right Upper Extremity With Intravenous Contrast CLINICAL HISTORY: Reason for exam: swelling. TECHNIQUE: Axial computed tomography images of the right upper extremity with intravenous contrast. CTDI is 19.67 mGy and DLP is 948.58 mGy-cm. Automated exposure control was utilized for the study. A dose lowering technique was utilized adhering to the principles of ALARA. CONTRAST: Patient received 93 ml opti 320 of IV contrast COMPARISON: No relevant prior studies available. FINDINGS: Images are obtained from the elbow to the fingers. There is no evidence of acute fracture or dislocation. There is no elbow joint effusion. There is no soft tissue gas or significant soft tissue inflammatory change. Flexor compartment of the forearm appears enlarged which may reflect diffuse muscle swelling. There is no soft tissue gas. IMPRESSION: 1. Prominence of the flexor compartment of the forearm raising the possibility of diffuse muscle swelling. Correlate clinically. Compartment syndrome is not excluded in the setting. 2. No acute osseous findings. Electronically signed by: Ed Thompson M.D. 07/31/25 01:51 AM (3) Injury of right upper extremity Encounter type: initial encounter Qualified Code(s): S49.91XA - Unspecified injury of right shoulder and upper arm, initial encounter
--- NOTE | 2025-08-02 14:31 | Hospitalist Progress Note ---
Date of Service August 02, 2025 Assessment & Plan (1) Cellulitis of right upper extremity: Plan: Right upper extremity cellulitis and hematoma/? Developing abscess/vasculitis Likely secondary to trauma, IV drug use Patient admits to use IV Adderall 1 week ago --Right upper extremity arterial Doppler:Normal right upper extremity duplex arterial ultrasound. -- Venous Doppler:No deep venous thrombosis of the right upper extremity. There are 2 subcutaneous complex fluid collections which could reflect hematomas. If there are infectious symptoms, small abscess is not excluded. -- Forearm CT:Prominence of the flexor compartment of the forearm raising the possibility of diffuse muscle swelling. Correlate clinically. Compartment syndrome is not excluded in the setting. No acute osseous findings. --Hand CT:. Prominence of the flexor compartment of the forearm raising the possibility of diffuse muscle swelling. Correlate clinically. Compartment syndrome is not excluded in the setting. No acute osseous findings. --Nasal MRSA:Negative --ESR 32, CRP normal -- Blood cultures negative to date --Continue doxycycline, IV cefepime IV fluids as needed Discussed with vascular surgeon in [place]: Reviewed images, offers no intervention at this time Discussed with hand surgeon at [place]: Patient could have distal emboli but no intervention recommended currently. Recommends Nitropaste, and hand warming Appreciate orthopedics input Consulted rheumatology given concern for vasculitis Continue Occupational Therapy Blood cultures remain negative IV drug use Counselled to quit drug use Anemia Unsure baseline hemoglobin Hemoglobin dropped partly dilutional secondary to IV fluids No acute bleeding issues Monitor Hyperglycemia HbA1c 5.2 Other chronic conditions Anxiety/mood disorder Chronic pain on Suboxone Ongoing vape use DVT Px: Lovenox SQ CODE STATUS Full code Admission and Anticipated Discharge Date Admission Date: July 30, 2025 Subjective Patient is seen and examined at bedside States that he is able to move his fingers better today Right hand pain slowly improving Still has discoloration of the extremity No new complaints today Review of Systems Review of Systems: All systems reviewed & are unremarkable except as noted in Subjective Physical Exam Physical Exam: Physical Exam: Vitals signs as noted above General Appearance:Thin, frail, no apparent distress Moderately built and nourished, no apparent distress Head: normocephalic, Atraumatic Eyes: normal inspection, EOMI Neck: supple, Trachea midline Respiratory/Chest: Normal breath sounds, CTA, No accessory muscle use Cardiovascular: S1, S2, No murmur Abdomen/GI:Soft, Non tender, Bowel sounds present Extremities/Musculoskeletal:normal inspection, right hand/forearm tender, swelling, discoloration. Neurologic/Psych:AAOX3, grossly no focal neurological deficits Skin: normal color, warm Results & Data Results & Data Vital Signs (Past 12 Hours) Vital Signs Temp Pulse Resp BP Pulse Ox O2 Del Method 08/02/25 11:20 36.5 C 84 16 110/70 96 Room Air 08/02/25 07:45 36.5 C 84 16 130/68 97 Room Air
--- NOTE | 2025-08-02 17:01 | Rheumatology Consultation ---
Rheumatology Consultation DOS August 02, [address] Rodriguez Attending Physician Dr Rodriguez Reason for Consultation ? 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 adderal carries a risk of vasculopathy/vasculitis and raynaud's and given his history and exam he likely more has raynaud's and vasculopathy than vasculitis. hopefully he does not lose the finger tips to his right 2nd and 3rd fingers and I dont think he will given length of symptoms. this is not an autoimmune issue and should resolve over time but would still treat the vasculopathy like a typical raynaud's/chilbalins patient. I would suggest full dose aspirin and 5mg of norvasc daily. can use nitropaste as needed as well. Case was discussed with Dr Rodriguez. (2) Raynauds phenomenon: Plan 1. Aspirin 325mg daily 2. norvasc 5mg daily 3. niotropaste as needed 4. would check hepatitis C and B studies since he is in house and reports history of + hep C testing in the past 5. recheck ESR 6. thank you for th consult and involving me in this patients care 7. I will arrange outpatient follow up History of Present Illness Reason for Consultation: ? vasculitis Requesting Physician: Dr Rodriguez Attending Physician: Med Rodriguez MD History of Present Illness Alexander is a 35 y/o male who presented to [facility] with worsening right arm pain and skin lesions. he is a recovering addict with past IV drug abuse who admits to IV adderal use. He injected it into his right arm pit - thought he was injecting a vein but instantly after doing this he developed right arm pain and some sin lesions to the arm. he also had a fall onto the right elbow that same night. he waited a few days before coming to the hospital to be seen. in those few days he had worsening right arm and hand pain with swelling and numbness to some of the fingers. he noted the most discoloration to the finger tips of the right 2-3 fingers. he was admitted for concern of cellulitis of the right hand. hand and forearm imaging showed some muscle swelling and was seen by orthopaedics but they did not feel he had compartment syndrome. Orthopaedic suggested referral to larger center for vascular and ortho hand evaluation. at admission his sed rate was mildly elevated at 32 and he was anemic. his kidney function was normal. his drug screen was only + for THC. he states that he does vape nicotine products. he has been treated with IV abx and admits that the swelling to the forearm and hand has improved. given concern for vasculitis rheumatology was consulted. Vascular surgery in [place] did not feel any intervention was needed and ortho hand at [facility] likewise stated did not need transfer and suggested nitro paste to the finger tips which he has been using now. he still has a decent amount of pain in the right 2-3 fingers and right thumb. the right thumb is mildly dac tylitic in appearance. he denies any issues like this in the past. no family history of autoimmune diseases. his other extremities are doing fine. he does have skin lesions on his legs from previous reactions to bad IV heroine a few years ago. Allergies Allergy/AdvReac Type Severity Reaction Status Date / Time No Known Allergies Allergy Verified 07/25/25 16:20 Home Medications Medication Instructions Recorded Confirmed Type buprenorphine 8 mg-naloxone 2 mg 1 film sublingual BID 07/30/25 07/30/25 History sublingual film Patient History Medical History Opioid dependence on agonist therapy Surgical History History of open reduction and internal fixation (ORIF) procedure History of orthopedic surgery Social History Smoking Status: Current every day smoker Tobacco Type: E-cigarettes / Vaping Second Hand Exposure: No; Do You Dip or Chew Tobacco: No; Tobacco Cessation Education Requested by Patient: No Hx Alcohol Use: No Hx Substance Use: Yes Last Used Substance Other:: On suboxone program. Substance Use Type Other:: Medical marijuana. Preferred Language: Maltese Communication Ability: Effective Hand Expansion Envelope Maker Required: No Beliefs That Will Affect Care: None Current Living Situation: Alone Other Information That Helps Us Care for You: No Feels Safe at Home: Yes Safety Concerns: Feels Safe At This Time Assistive Devices: None Review of Systems Constitutional: no fevers Eyes: normal Ear, Nose, Mouth, Throat: normal Respiratory: normal Cardiovascular: Additional Comments: normal Musculoskeletal: right hand pain Integumentary: skin lesions Physical Exam Constitutional: WD/WN, vitals as above ENMT: external ear and nose normal, oropharynx normal Respiratory: normal respiratory effort, lungs clear to auscultation Cardiovascular: RRR, no murmur, no edema Gastrointestinal (Abdomen): normal bowel sounds, soft, nontender, no hepatosplenomegaly Musculoskeletal: pain to palpation of the right thumb, right 2-3 finger tips. mild dactylitis of the right thumb. 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 Skin: purpuritic skin lesions of the right upper and lower arms and hand. grayish/blue discoloration of the right 2-3 finger tips with no white color change. no digits ulcers or pits noted. Results & Data Vital Signs (Past 12 Hours) Vital Signs Temp Pulse Resp BP Pulse Ox O2 Del Method 08/02/25 15:18 36.6 C 73 17 139/74 95 Room Air 08/02/25 11:20 36.5 C 84 16 110/70 96 Room Air 08/02/25 07:45 36.5 C 84 16 130/68 97 Room Air Laboratory Results reviewed Diagnostic Findings reviewed
[2025-08-02] MEDS ORDERED: KETOROLAC TROMETHAMINE 15 MG/ML VIAL IV PRN (17:33)
[2025-08-02] MEDS: ASPIRIN 325 MG ECTAB PO SCH (18:37)
[2025-08-03] MEDS: KETOROLAC TROMETHAMINE 15 MG/ML VIAL IV PRN (03:19)
[2025-08-03 07:26] LABS: Hematocrit (blood only) 34.3 % (42.0-52.0); Hemoglobin 11.8 g/dl (14.0-18.0); Mean Corpuscular Hemoglobin 28.6 pg (25.0-34.0); Mean Corpuscular Volume 83.1 fL (80.0-100.0); Platelet Count 256 K/uL (130-400); RDW Standard Deviation 39.0 fL (36.4-46.3); Red Blood Count 4.13 M/uL (4.70-6.10); White Blood Count 8.32 K/ul (4.8-10.8)
[2025-08-03] MEDS: ACETAMINOPHEN 1,000 MG/100 ML VIAL IV PRN (07:52)
[2025-08-03 08:13] LABS: Anion Gap 7.0 (3-11); Blood Urea Nitrogen 17.0 mg/dl (6-23); Calcium 8.9 mg/dl (8.6-10.3); Carbon Dioxide 30.0 mmol/L (21-32); Chloride 104.0 mmol/L (98-107); Creatinine Clr Calc Pharmacy 139.4 ml/min; Glucose 93.0 mg/dl (70-99(Fasting)); Potassium 3.9 mmol/L (3.5-5.1); Sodium 141.0 mmol/L (136-145)
[2025-08-03 08:22] VITALS: BP 134/87; PULSE 76; RESP 18; TEMP 97.9; O2SAT 97
[2025-08-03 09:49] LABS: Hep B Surface Ag with confirm Negative (Negative)
[2025-08-03 10:27] LABS: Hep C Ab Rflx HepCQuant RNA Prelim Positive (Negative)
--- NOTE | 2025-08-03 12:43 | Orthopedic Progress Note ---
Date of Service August 03, 2025 Assessment & Plan (1) Discoloration of skin of finger: (2) Injury of right upper extremity: Plan Right upper extremity and right right hand micro emboli versus vasculitis or other vasculopathy. This is secondary to intravenous Adderall that was injected at the axilla about 1 week ago. - Overall patient is continually improving with less pain and better mobility. 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 They recommended ASA 325mg daily, Norvasc 5mg daily. - Still no fluctuance or soft tissue masses to indicate an abscess - Patient likely has micro emboli to his thumb, index finger, and long finger or other vascular issue compromising perfusion. There is concern that these have poor perfusion, it is very possible the patient will have tissue necrosis and require partial amputation of the fingers in the future. We have discussed this multiple times at length. I would have this done by a hand specialist. - Blood cultures negative Continue with application of topical Nitropaste and hand warming Will continue to monitor OT consult has been completed -Orthopedically stable to discharge when medically cleared. No acute surgical needs. -Follow up with me in office in 1 week for re evaluation. -Discussed return to ED precautions including new fever/chills, worsening skin changes, drainage, new or severe pain, new paresthesias. Admission and Anticipated Discharge Date Admission Date: July 30, 2025 Subjective Patient seen and evaluated today. Resting comfortably. Pain is well- controlled. He denies any significant changes or worsening in his symptoms. He does still have pain in his right hand seems to be worse in the thumb relative to the other fingers. States that he thinks overall things are getting a little bit better. Physical Exam Physical Exam: General: Patient awake, alert, no obvious distress. Afebrile vital signs are stable. Skin: Continues to have violaceous appearing raised discoloration about the upper arm and forearm, does appear to be slightly smaller than previous exams. No significant erythema about the right upper extremity. Musculoskeletal: Right upper extremity: - Tips of the thumb, index finger, long finger are discolored there is a white to bluish discoloration. The discoloration has gotten a little bit smaller about the index finger it was previously just proximal to the DIP joint it is now more isolated to the skin distal to the DIP joint. Overall hand appears more pink in the areas that were previously a white to bluish discoloration though that still does exist. - Moderate tenderness over the distal pa ds of the thumb, index finger, and long finger as well as thenar eminence. No significant tenderness over the dorsal hand, forearm, or proximal arm. - Patient is able to make 90% of a compo site fist. He can actively flex and extend the wrist and elbow without significant pain. He can freely move his shoulder. - Hand and forearm compartments are soft and compressible - No significant pain increase or pain o ut of proportion with passive wrist and finger motion - 5 out of 5 thumb extension strength - Sensation intact to light touch distal ly over all of the fingers - Radial pulse 2+ - Capillary refill is prolonged in the t humb, index finger, and long finger. Thumb is about 2-3 seconds, index finger is about 3 to 4 seconds, long finger is about 3 seconds. Results & Data Vital Signs (Past 12 Hours) Vital Signs Temp Pulse Resp BP Pulse Ox O2 Del Method 08/03/25 08:19 36.6 C 76 18 134/87 97 Room Air (2) Injury of right upper extremity Encounter type: initial encounter Qualified Code(s): S49.91XA - Unspecified injury of right shoulder and upper arm, initial encounter
--- NOTE | 2025-08-03 13:23 | Discharge Summary ---
Date of Service August 03, 2025 Admission HPI Per Admitting Provider History obtained from patient and records. Medical history significant for anxiety/mood disorder, chronic pain on Suboxone, history of substance abuse, ongoing vape use. Patient fell on his porch last week resulting in right hand/forearm trauma. Progressive swelling noted. Patient consulted [facility] 5 days ago. Soft tissue swelling noted on exam. No fractures on imaging. Patient discharged home and told to follow-up with orthopedics pediatric physician. Worsening RUE swelling/bruising over the last few days. No fever, no chills. No chest pain, no SOB. Patient return to ER for worsening symptoms. IV vancomycin and Zosyn administered at the ER. Medical History as above Surgical History : Left hand trauma surgery Family History : No DM, no heart disease, no stroke, no blood clots Personal/Social history : Ongoing vape use, no EtOH intake, [employer] employee Admission Exam Per Admitting Provider GENERAL: Comfortable, pleasant, underweight, no respiratory distress SKIN: Pallor, warm HEENT: Pale palpebral conjunctivae, no ptosis, dry buccal mucosa NECK : Supple, no tenderness CHEST : CTA, no tenderness HEART : RRR, no obvious murmurs ABDOMEN: no distention, nontender EXTREMITIES : Tender right hand/right forearm swelling with violaceous discoloration, palpable pulses, no other conspicuous deformities noted NEUROLOGIC : Coherent, no facial asymmetry, no other gross focality Principal Diagnosis Vasculopathy of right arm secondary to Adderall injection Discharge Exam Constitutional: WD/WN, vitals as above, NAD, sitting up in bed, pleasant, conversing easily Respiratory: normal respiratory effort, lungs clear to auscultation, no wheeze, rales, rhonchi. Normal insp/exp effort, no accessory muscle use Cardiovascular: RRR, no murmur, no edema Vessels: no JVD or carotid bruit Chest: normal inspection of chest Abdomen: normal bowel sounds, soft, nontender, no hepatosplenomegaly Right arm examination; poor pruritic skin lesions in right upper and lower arm and hand. Grayish discoloration of right 2nd and 3rd fingertips; no digital ulcer. Tenderness to palpation of right 2nd and 3rd fingertips. Edema of right hand. No other lesion elsewhere Neurologic: PERRL, EOMI, accommodation nl, no face palsy, no dysarthria CN's II- XI intact bilaterally and moves all extremities Psychiatric: A+Ox3, euthymic affect Discharge Data Allergies Allergy/AdvReac Type Severity Reaction Status Date / Time No Known Allergies Allergy Verified 07/25/25 16:20 Consultations 07/30/25 19:25 ED Decision to Admit Stat 07/31/25 01:53 Consult Orthopedic Surgery Routine 08/02/25 14:31 Consult Rheumatology Routine Ordered Studies 07/30/25 16:19 US arterial duplex UE RT Stat US venous doppler UE RT Stat 07/30/25 20:29 CT forearm RT w con Stat CT hand RT w con Stat Hospital Course (1) Cellulitis of right upper extremity: Vasculopathy of right arm and hand likely secondary to Adderall injection Patient presented to the hospital with pain, for pruritic skin lesions on right upper and lower arm along with bluish discoloration of right 2nd and 3rd fingertips. Patient reported injection of Adderall to the axilla a week prior to the presentation. Images as follow-up: --Right upper extremity arterial Doppler:Normal right upper extremity duplex arterial ultrasound. -- Venous Doppler:No deep venous thrombosis of the right upper extremity. There are 2 subcutaneous complex fluid collections which could reflect hematomas. If there are infectious symptoms, small abscess is not excluded. -- Forearm CT:Prominence of the flexor compartment of the forearm raising the possibility of diffuse muscle swelling. Correlate clinically. Compartment syndrome is not excluded in the setting. No acute osseous findings. --Hand CT:. Prominence of the flexor compartment of the forearm raising the possibility of diffuse muscle swelling. Correlate clinically. Compartment syndrome is not excluded in the setting. No acute osseous findings. Patient was admitted to the hospital; was started on empiric antibiotic. Orthopedic and rheumatology was consulted for comanagement. Orthopedic recommended possible transfer to tertiary care center; discussion was done with vascular surgery on-call in [place] as well as hand surgeon at [facility]; did not recommend intervention at this time. Rheumatology recommended starting amlodipine, aspirin, Nitropaste. Orthopedic did not recommend any acute surgical need. Patient's ESR down trended during the hospitalization. Patient reported significant improvement in the symptoms. Patient was discharged home on amlodipine, full dose aspirin, analgesics and empiric antibiotic. Patient to follow-up with PCP, rheumatology and orthopedics. Discussion was done with the patient regarding monitoring of the hand for any signs or symptoms of further damage/ischemia; I discussed seeking immediate medical attention if patient starts to experience severe pain, progressive skin color changes, fever, chills, dizziness. Patient verbalized understanding. Please note the above document was generated using voice recognition software. It may contain grammatical, syntax or spelling errors. Any formal questions or concerns about the content, text or information contained within the body of this dictation should be directly addressed to the provider for clarification Total Time Total Time Spent Total Time Spent (In Minutes): 45 Total Time Includes: Examination of the Patient, Discharge Planning, Medication Reconciliation, Communication With Other Providers and Other Discharge Plan Discharge Items Patient Disposition: Home - Self-Care Reason For Visit: RUE ABSCESS Discharge Diagnosis: Right arm and hand Vasculopathy Condition on Discharge: Fair Activity: Resume your previous activity Non-emergency contact: Primary Care Provider Call non-emergency contact if: you have any medication questions Follow-up/Referrals: Homar Jackson MD [Physician] - Demarcus Velez DO [Surgeon] - 08/10/25 8:45 am Tamica Roger DO [Physician] - 08/10/25 10:30 am Diet: Regular Addtl Attending Provider Instructions: You were admitted to the hospital due to vasculopathy from the injected Adderall. You were evaluated by orthopedic doctor( Dr. Demarcus Velez) and rheumatology Doctor( Dr. Homar Reynoso). You have been prescribed following medication; Take amlodipine 5 mg once a day. This is to relax the vessels and increase blood flow Take aspirin 325 mg once a day. This prevents clotting of blood. Apply Nitro-Bid ointment to your finger as needed every 6 hours. You are also prescribed Protonix to prevent gastritis while you are taking ibuprofen and aspirin. For pain; take ibuprofen and Tylenol as needed. If the pain is very severe; you have been prescribed oxycodone. Please follow-up with your primary care doctor. Follow-up with orthopedic. Rheumatology will call you with an appointment. 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 Velez (orthopedics) in 1 week. An appointment has been listed in your discharge paperwork. If you need to change this appointment or have any other questions, call [phone]. Pending Studies at Discharge: No Stand-Alone Forms: My [facility], Work/School Release, Smoking Cessation Medications and DC Order Prescriptions: New doxycycline hyclate 100 mg Capsule 100 mg PO BID 5 Days Qty: 10 0RF amlodipine 5 mg Tablet 5 mg PO QAM Qty: 30 0RF aspirin [Ecotrin] 325 mg Tablet,Delayed Release (Dr/Ec) 325 mg PO QAM Qty: 30 0RF nitroglycerin [Nitro-Bid] 2 % Ointment 0.5 inch EXT Q6H PRN (Reason: pain on fingers) Qty: 30 0RF ibuprofen 800 mg tablet 800 mg PO Q8H PRN (Reason: pain) Qty: 30 0RF oxycodone 5 mg tablet 5 mg PO DAILY Qty: 14 0RF amoxicillin-pot clavulanate 875-125 mg tablet 1 tab PO BID 5 Days Qty: 10 0RF pantoprazole [Protonix] 40 mg tablet,delayed release (DR/EC) 40 mg PO DAILY 30 Days Qty: 30 0RF Continued buprenorphine-naloxone 8-2 mg film 1 film sublingual BID Discharge Orders: Discharge Order (Routine); Ordered 08/03/25 Ordered By: Hank Arora Admission Data Admit Date/Time: 07/30/25 19:36 Attending Provider: Hank Arora Admit Provider: Pino Blanca Primary Care Provider: PCP,NO Other Providers: Pino Blanca; Demarcus Velez; Homar Jackson Other Interventions: Discharge Summary Assessment (RN) Last Done: 08/03/25 13:15
[2025-08-04 16:12] LABS: Marijuana Quant, GCMS Urine 350 ng/mL (<5)
[2025-08-04 20:08] LABS: Hepatitis C Vira RNA (Log) PCR <1.18 NOT DETECTED Log IU/mL (NOT DETECTED)
[2025-08-06 21:42] LABS: Hepatitis B Core Antibody IgM NON-REACTIVE (NON-REACTIVE)
== END 2025-08-03 16:01 | disposition home or self-care (01) | DRG 300 ==
LOC: ED 15:38 → INTOOBSV 19:36 → 3E 19:36 → SUATTDRO 19:36 → 3E 21:04